=== PATIENT | female | born 1970 | race Caucasian/White ===

== ENCOUNTER 2021-03-06 15:13 | Outpatient (REF) | payer OTHER, SELFPAY ==
--- NOTE | ~2021-03-06 | MM_ITS ---
EXAMINATION: MM SCREENING DIGITAL BREAST TOMOSYNTHESIS, BILATERAL CLINICAL INFORMATION: Screening. Asymptomatic. The lifetime risk of breast cancer based on the Tyrer-Cuzick Model is 6%. COMPARISON: Mammography: 10/12/2019, 04/16/2018, 03/01/2013 TECHNIQUE: Digital breast tomosynthesis is performed in both the craniocaudal and mediolateral oblique views along with computer-aided detection (CAD). Synthesized 2D images are generated from the tomosynthesis. FINDINGS: There are scattered areas of fibroglandular density (ACR BI-RADS breast composition Category b). There are no significant masses, abnormal calcifications, or other abnormalities. Parenchymal pattern is similar to prior studies. No significant changes. MM/MM tomosynthesis screening BI IMPRESSION: No mammographic evidence of malignancy. ASSESSMENT: BI-RADS 1: Negative RECOMMENDATION: Routine annual mammography screening. This patient's information was entered into a reminder system with a target due date for their next mammogram.
== END 2021-03-06 15:14 | disposition home or self-care (01) ==
LOC: HO.MAMMO 15:13
PROVIDERS: PCP Internal Medicine; Visit Provider Internal Medicine
DX: Z12.31 Encounter for screening mammogram for malignant neoplasm of breast (principal)
CPT/HCPCS: 77063; 77067

== ENCOUNTER 2022-01-23 08:05 | Outpatient (REF) | payer OTHER, SELFPAY ==
[2022-01-23 08:46] LABS: MANUAL DIFF FLAG NO
[2022-01-23 09:34] LABS: Basophils Absolute Auto 0.1 X10*3/uL (0.0-0.2); Basophils Percent Auto 0.9 % (0-2); Eosinophils Absolute Auto 0.2 X10*3/uL (0.0-0.4); Eosinophils Percent Auto 3.4 % (0-4); Hemoglobin 13.8 g/dl (12.0-16.0); Imm Gran Abs Auto 0.02 X10*3/uL (0.00-0.03); Imm Gran Pct Auto 0.4 % (0.0-0.4); Immature Retic Fraction 10.1 % (3.0-15.9); Lymphocytes Absolute Auto 1.4 X10*3/uL (1.2-4.9); Lymphocytes Percent Auto 24.4 % (20-40); Mean Corpuscular HGB Conc 32.1 g/dl (31.0-35.0); Mean Corpuscular Hemoglobin 29.9 pg (27.0-33.0); Mean Corpuscular Volume 93.1 fL (80.0-98.0); Mean Platelet Volume 10.1 fL (9.4-12.3); Monocytes Absolute Auto 0.3 X10*3/uL (0.1-1.2); Monocytes Percent Auto 6.1 % (2-11); Neutrophils Absolute Auto 3.6 x10*3/uL (2.0-8.3); Neutrophils Percent Auto 64.8 % (45-73); Platelet Count 343 X10*3/uL (160-400); Red Blood Count 4.62 X10*6/uL (4.20-5.50); Red Cell Distribution Width 13.4 % (11.0-16.0); Retic HGB Equivalent 35.5 pg (30.0-35.0); Reticulocyte Percent 1.7 % (0.5-1.8); White Blood Count 5.6 X10*3/uL (4.8-10.8)
[2022-01-23 09:58] LABS: Alanine Aminotransferase 18 U/L (0-31); Albumin Level 4.8 g/dL (3.5-5.0); Alkaline Phosphatase 92 U/L (39-117); Anion Gap 14 (12-20); Aspartate Amino Transferase 17 U/L (5-31); Blood Urea Nitrogen 17 mg/dL (9-16); Calcium 9.6 mg/dL (8.4-10.2); Carbon Dioxide 28 mmol/L (22-29); Chloride 103 mmol/L (96-108); Cholesterol 245 mg/dL; Estimated Glomerular Filt Rate > 60; Glucose Random 131 mg/dL (60-115); HDL Cholesterol 56 mg/dL; LDL Cholesterol Calculated 164 mg/dl; Potassium 4.5 mmol/L (3.3-5.1); Sodium 140 mmol/L (135-145); Total Protein 7.9 g/dL (6.5-8.0); Triglycerides 129 mg/dL
[2022-01-23 10:11] LABS: Free T4 (Free Thyroxine) 1.16 ng/dL (0.71-1.85); Thyroid Stimulating Hormone 13.95 uIU/mL (0.32-4.0); Vitamin D 25-OH Total 35.5 ng/mL (>30)
== END 2022-01-23 08:06 | disposition home or self-care (01) ==
LOC: HO.LAB 08:05
PROVIDERS: PCP Internal Medicine; Visit Provider Internal Medicine
DX: R73.01 Impaired fasting glucose (principal); E03.9 Hypothyroidism, unspecified; E78.00 Pure hypercholesterolemia, unspecified
CPT/HCPCS: 36415; 80053; 80061; 82306; 84439; 84443; 85025; 85045

== ENCOUNTER 2022-03-13 12:11 | Outpatient (REF) | payer OTHER, SELFPAY ==
--- NOTE | ~2022-03-13 | MM_ITS ---
EXAMINATION: MM SCREENING DIGITAL BREAST TOMOSYNTHESIS, BILATERAL CLINICAL INFORMATION: Screening. Asymptomatic. The lifetime risk of breast cancer based on the Tyrer-Cuzick Model is 7%. COMPARISON: Mammography: 03/06/2021, 10/12/2019, 04/06/2018, 03/01/2013 TECHNIQUE: Digital breast tomosynthesis is performed in both the craniocaudal and mediolateral oblique views along with computer-aided detection (CAD). Synthesized 2D images are generated from the tomosynthesis. FINDINGS: There are scattered areas of fibroglandular density (ACR BI-RADS breast composition Category b). Parenchymal pattern is similar to prior studies. No developing density or interval mass or architectural abnormality. There is asymmetry of the breasts similar to prior study, right slightly larger. The axilla and skin contours are unremarkable. There are no significant changes prior exams. MM/MM tomosynthesis screening BI IMPRESSION: No mammographic evidence of malignancy. ASSESSMENT: BI-RADS 2: Benign RECOMMENDATION: Routine annual mammography screening. This patient's information was entered into a reminder system with a target due date for their next mammogram.
== END 2022-03-13 12:12 | disposition home or self-care (01) ==
LOC: HO.MAMMO 12:11
PROVIDERS: Visit Provider Internal Medicine
DX: Z12.31 Encounter for screening mammogram for malignant neoplasm of breast (principal)
CPT/HCPCS: 77063; 77067

== ENCOUNTER 2022-05-07 08:09 | Outpatient (REF) | payer OTHER, SELFPAY ==
[2022-05-07 08:59] LABS: Alanine Aminotransferase 18 U/L (0-31); Albumin Level 4.4 g/dL (3.5-5.0); Alkaline Phosphatase 86 U/L (39-117); Anion Gap 13 (12-20); Aspartate Amino Transferase 14 U/L (5-31); Bilirubin Total 0.6 mg/dL (0.0-1.0); Blood Urea Nitrogen 21 mg/dL (9-16); Calcium 9.4 mg/dL (8.4-10.2); Carbon Dioxide 26 mmol/L (22-29); Chloride 107 mmol/L (96-108); Cholesterol 180 mg/dL; Estimated Glomerular Filt Rate > 60; Glucose Random 130 mg/dL (60-115); HDL Cholesterol 50 mg/dL; LDL Cholesterol Calculated 117 mg/dl; Sodium 141 mmol/L (135-145); Total Protein 7.2 g/dL (6.5-8.0); Triglycerides 67 mg/dL
[2022-05-07 09:15] LABS: Free T4 (Free Thyroxine) 1.48 ng/dL (0.71-1.85); Thyroid Stimulating Hormone 0.62 uIU/mL (0.32-4.0)
== END 2022-05-07 08:10 | disposition home or self-care (01) ==
LOC: HO.LAB 08:09
PROVIDERS: PCP Internal Medicine; Visit Provider Internal Medicine
DX: E03.9 Hypothyroidism, unspecified (principal); E78.00 Pure hypercholesterolemia, unspecified
CPT/HCPCS: 36415; 80053; 80061; 84439; 84443

== ENCOUNTER 2022-08-20 08:16 | Outpatient (REF) | payer OTHER, SELFPAY ==
[2022-08-20 09:35] LABS: Alanine Aminotransferase 27 U/L (0-31); Albumin Level 4.6 g/dL (3.5-5.0); Alkaline Phosphatase 95 U/L (39-117); Anion Gap 16 (12-20); Aspartate Amino Transferase 19 U/L (5-31); Bilirubin Total 1.1 mg/dL (0.0-1.0); Blood Urea Nitrogen 13 mg/dL (9-16); Calcium 9.8 mg/dL (8.4-10.2); Carbon Dioxide 26 mmol/L (22-29); Chloride 103 mmol/L (96-108); Cholesterol 225 mg/dL; Estimated Glomerular Filt Rate > 60; Glucose Random 115 mg/dL (60-115); HDL Cholesterol 52 mg/dL; LDL Cholesterol Calculated 143 mg/dl; Potassium 4.6 mmol/L (3.3-5.1); Sodium 140 mmol/L (135-145); Total Protein 7.6 g/dL (6.5-8.0); Triglycerides 153 mg/dL
[2022-08-20 10:02] LABS: Free T4 (Free Thyroxine) 1.65 ng/dL (0.71-1.85); Thyroid Stimulating Hormone 0.09 uIU/mL (0.32-4.0)
== END 2022-08-20 08:17 | disposition home or self-care (01) ==
LOC: HO.LAB 08:16
PROVIDERS: PCP Internal Medicine; Visit Provider Internal Medicine
DX: E78.00 Pure hypercholesterolemia, unspecified (principal)
CPT/HCPCS: 36415; 80053; 80061; 84439; 84443

== ENCOUNTER 2022-12-15 08:33 | Outpatient (REF) | payer OTHER, SELFPAY ==
[2022-12-15 09:15] LABS: Estimated Average Glucose 117 mg/dL; Hemoglobin A1c % 5.7 %
[2022-12-15 09:18] LABS: Basophils Absolute Auto 0.1 X10*3/uL (0.0-0.2); Basophils Percent Auto 1.1 % (0-2); Eosinophils Absolute Auto 0.2 X10*3/uL (0.0-0.4); Eosinophils Percent Auto 2.7 % (0-4); Hematocrit 44.7 % (37.0-47.0); Hemoglobin 14.6 g/dl (12.0-16.0); Imm Gran Abs Auto 0.03 X10*3/uL (0.00-0.03); Imm Gran Pct Auto 0.5 % (0.0-0.4); Lymphocytes Absolute Auto 1.5 X10*3/uL (1.2-4.9); Lymphocytes Percent Auto 26.2 % (20-40); MANUAL DIFF FLAG SCAN; Mean Corpuscular HGB Conc 32.7 g/dl (31.0-35.0); Mean Corpuscular Hemoglobin 30.2 pg (27.0-33.0); Mean Corpuscular Volume 92.4 fL (80.0-98.0); Monocytes Absolute Auto 0.4 X10*3/uL (0.1-1.2); Monocytes Percent Auto 6.4 % (2-11); Neutrophils Absolute Auto 3.6 x10*3/uL (2.0-8.3); Neutrophils Percent Auto 63.1 % (45-73); PLT CLUMP 1; Red Blood Count 4.84 X10*6/uL (4.20-5.50); Red Cell Distribution Width 13.3 % (11.0-16.0); SCAN SMEAR FLAG 1
[2022-12-15 09:39] LABS: Alanine Aminotransferase 17 U/L (0-31); Albumin Level 4.7 g/dL (3.5-5.0); Alkaline Phosphatase 101 U/L (39-117); Anion Gap 15 (12-20); Aspartate Amino Transferase 15 U/L (5-31); Bilirubin Total 0.8 mg/dL (0.0-1.0); Blood Urea Nitrogen 24 mg/dL (9-16); Calcium 9.5 mg/dL (8.4-10.2); Carbon Dioxide 24 mmol/L (22-29); Chloride 105 mmol/L (96-108); Cholesterol 239 mg/dL; Estimated Glomerular Filt Rate > 60; Glucose Random 135 mg/dL (60-115); HDL Cholesterol 53 mg/dL; LDL Cholesterol Calculated 162 mg/dl; Potassium 4.2 mmol/L (3.3-5.1); Sodium 140 mmol/L (135-145); Total Protein 7.5 g/dL (6.5-8.0); Triglycerides 124 mg/dL
[2022-12-15 09:41] LABS: Mean Platelet Volume 10.8 fL (9.4-12.3); Platelet Count 293 X10*3/uL (160-400); White Blood Count 5.7 X10*3/uL (4.8-10.8)
[2022-12-15 09:42] LABS: SLIDE REVIEW VERIFIED
[2022-12-15 09:54] LABS: Thyroid Stimulating Hormone 8.56 uIU/mL (0.32-4.0)
[2022-12-15 10:01] LABS: Folate 11.6 ng/mL (> or = 4.0); Vitamin B12 613 pg/mL (200-900)
[2022-12-15 10:22] LABS: Creatinine Urine 147.32 mg/dL; Microalbum/Creatinine Ratio Ur 16.9 ug/mg cr
== END 2022-12-15 08:34 | disposition home or self-care (01) ==
LOC: HO.LAB 08:33
PROVIDERS: PCP Internal Medicine; Visit Provider Internal Medicine
DX: E11.65 Type 2 diabetes mellitus with hyperglycemia (principal); E78.00 Pure hypercholesterolemia, unspecified
CPT/HCPCS: 36415; 80053; 80061; 82043; 82607; 82746; 83036; 84439; 84443; 85025

== ENCOUNTER 2023-02-03 13:10 | Outpatient (REF) | payer OTHER, SELFPAY ==
[2023-02-07 02:59] LABS: HPV mRNA E6/E7 rflx Not Detected (Not Detected)
== END 2023-02-03 13:11 | disposition home or self-care (01) ==
LOC: HO.LNP 13:10
PROVIDERS: PCP Internal Medicine; Visit Provider Advanced Practice Midwife
DX: Z01.419 Encounter for gynecological examination (general) (routine) without abnormal findings (principal)
CPT/HCPCS: 87624; 88142

== ENCOUNTER 2023-03-20 08:14 | Outpatient (REF) | payer OTHER, SELFPAY ==
[2023-03-20 09:13] LABS: Estimated Average Glucose 120 mg/dL; Hemoglobin A1C 148.7788 umol/L; Hemoglobin A1c % 5.8 %
[2023-03-20 09:26] LABS: Alanine Aminotransferase 36 U/L (0-31); Albumin Level 4.5 g/dL (3.5-5.0); Alkaline Phosphatase 116 U/L (39-117); Anion Gap 13 (12-20); Aspartate Amino Transferase 26 U/L (5-31); Bilirubin Total 1.5 mg/dL (0.0-1.0); Blood Urea Nitrogen 15 mg/dL (9-16); Calcium 9.4 mg/dL (8.4-10.2); Carbon Dioxide 27 mmol/L (22-29); Chloride 105 mmol/L (96-108); Cholesterol 162 mg/dL; Estimated Glomerular Filt Rate > 60; Glucose Random 143 mg/dL (60-115); HDL Cholesterol 45 mg/dL; LDL Cholesterol Calculated 100 mg/dl; Potassium 4.7 mmol/L (3.3-5.1); Sodium 140 mmol/L (135-145); Triglycerides 87 mg/dL
== END 2023-03-20 08:15 | disposition home or self-care (01) ==
LOC: HO.LAB 08:14
PROVIDERS: PCP Internal Medicine; Visit Provider Internal Medicine
DX: E11.65 Type 2 diabetes mellitus with hyperglycemia (principal); E78.00 Pure hypercholesterolemia, unspecified
CPT/HCPCS: 36415; 80053; 80061; 83036

== ENCOUNTER 2023-04-17 13:04 | Outpatient (REF) | payer OTHER, SELFPAY ==
--- NOTE | ~2023-04-17 | MM_ITS ---
EXAMINATION: MM SCREENING DIGITAL BREAST TOMOSYNTHESIS, BILATERAL CLINICAL INFORMATION: Screening. Asymptomatic. The lifetime risk of breast cancer based on the Tyrer-Cuzick Model is 6%. COMPARISON: Mammography: 03/13/2022, 03/06/2021, 10/13/2019 TECHNIQUE: Digital breast tomosynthesis is performed in both the craniocaudal and mediolateral oblique views along with computer-aided detection (CAD). Synthesized 2D images are generated from the tomosynthesis. FINDINGS: There are scattered areas of fibroglandular density (ACR BI-RADS breast composition Category b). There are no significant masses, abnormal calcifications, or other abnormalities. No architectural abnormality or developing density or significant change from prior studies. Parenchymal pattern is similar to prior studies. The axilla and skin contours are unremarkable. MM/MM tomosynthesis screening BI IMPRESSION: No mammographic evidence of malignancy. ASSESSMENT: BI-RADS 1: Negative RECOMMENDATION: Routine annual mammography screening. This patient's information was entered into a reminder system with a target due date for their next mammogram.
== END 2023-04-17 13:05 | disposition home or self-care (01) ==
LOC: HO.MAMMO 13:04
PROVIDERS: PCP Internal Medicine; Visit Provider Internal Medicine
DX: Z12.31 Encounter for screening mammogram for malignant neoplasm of breast (principal)
CPT/HCPCS: 77063; 77067

== ENCOUNTER 2023-06-26 08:37 | Outpatient (REF) | payer OTHER, SELFPAY ==
[2023-06-26 09:06] LABS: Estimated Average Glucose 111 mg/dL; Hemoglobin A1c % 5.5 %
[2023-06-26 09:31] LABS: Alanine Aminotransferase 18 U/L (0-31); Albumin Level 4.5 g/dL (3.5-5.0); Alkaline Phosphatase 111 U/L (39-117); Anion Gap 18 (12-20); Aspartate Amino Transferase 15 U/L (5-31); Bilirubin Total 0.9 mg/dL (0.0-1.0); Blood Urea Nitrogen 14 mg/dL (9-16); Calcium 9.6 mg/dL (8.4-10.2); Carbon Dioxide 22 mmol/L (22-29); Chloride 107 mmol/L (96-108); Cholesterol 167 mg/dL; Estimated Glomerular Filt Rate > 60; Glucose Random 126 mg/dL (60-115); HDL Cholesterol 52 mg/dL; LDL Cholesterol Calculated 99 mg/dl; Potassium 4.1 mmol/L (3.3-5.1); Sodium 143 mmol/L (135-145); Total Protein 7.5 g/dL (6.5-8.0); Triglycerides 82 mg/dL
[2023-06-26 09:58] LABS: Free T4 (Free Thyroxine) 0.71 ng/dL (0.71-1.85); Thyroid Stimulating Hormone 20.31 uIU/mL (0.32-4.0)
== END 2023-06-26 08:38 | disposition home or self-care (01) ==
LOC: HO.LAB 08:37
PROVIDERS: PCP Internal Medicine; Visit Provider Internal Medicine
DX: E03.9 Hypothyroidism, unspecified (principal); E11.65 Type 2 diabetes mellitus with hyperglycemia; E78.00 Pure hypercholesterolemia, unspecified
CPT/HCPCS: 36415; 80053; 80061; 83036; 84439; 84443

== ENCOUNTER 2023-11-17 13:28 | Outpatient (AMB) | payer OTHER, SELFPAY ==
--- NOTE | 2023-11-17 13:30 | A.OFFPC_ITS ---
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: No Accompanied by: Self / Same As Patient Allergies Penicillins [PENICILLINS] Allergy (Unknown, Verified 11/17/23 13:31) RASH Medication List - Last Reconciled 11/17/23 by Bruce Rawls MD atorvastatin 80 mg PO DAILY 90 days cholecalciferol (vitamin D3) 25 mcg PO DAILY levothyroxine 137 mcg PO DAILY 90 days multivitamin 1 tab PO DAILY omega-3 fatty acids (Fish Oil Concentrate) 1,000 mg PO DAILY Tobacco use date assessed: 12/19/22 Dental Screening Dental Screen Date: 11/17/23 Did you have a dental visit in the last 12 months?: Yes Did you have a dental problem in the last 6 months where you did not have access to dental care?: No Was dental information given to patient?: Patient has dentist HPI PE HPI Details 53-year-old overweight female with contr olled diabetes mellitus hypercholesterolemia hypothyroidism last seen in February 2023. Patient is here for follow-up. Patient's colonoscopy is due in 2023 mammogram is up-to-date and Pap smear is up-to-date patient was advised to get blood work done after the last blood work because of the elevated TSH but this was not done. Patient is here for physical [facility] Medical History Concussion Hearing loss Hypercholesterolemia Hypothyroid Learning disability Overweight (BMI 25.0-29.9) Pelvic fracture Stress incontinence Vitamin D deficiency Surgical History History of colonoscopy History of ear surgery History of nasal surgery History of tubal ligation Family History (Updated 11/17/23 @ 14:16 by Bruce Rawls MD) Father Colon cancer Myocardial infarction Mother Diabetes Maternal Grandfather Myocardial infarction Paternal Grandmother Mouth cancer Gastric cancer Paternal Uncle Colon cancer Spinal cord cancer Sister Uterine cancer Social History (Updated 11/17/23 @ 14:17 by Bruce Rawls MD) Household Members Other:: . 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 Luis Gray, Lisa Valdes, Niraj Martin and colleagues, with an educational smita from [employer]. Review of Systems Const Denies poor appetite and Denies weakness Eyes Denies no additional complaints ENT Reports Normal hearing present, Denies dizziness, Denies nasal congestion, D enies tinnitus and Denies sore throat Card Denies chest pain, Denies syncope, Denies rapid heart rate and Denies dyspnea Resp Denies cough and Denies dyspnea GI Denies change in stool character, Reports constipation, Denies diarrhea, Denies nausea and Denies vomiting Denies urinary frequency, Denies difficulty voiding and Denies dysuria Neuro Reports Normal hearing present, Denies confusion, Denies dizziness, Denies syncope and Denies weakness Psych Denies confusion Physical exam (Primary Care) Vital Signs: Last Vital Signs Pulse 70 11/17/23 13:31 BP 138/80 11/17/23 14:13 Pulse Ox 97 11/17/23 13:31 Oxygen Delivery Method Room Air 11/17/23 13:31 BMI result Body Mass Index 26.8 Tobacco/Smoking Status: Tobacco use Status Tobacco use date assessed 12/19/22 11/17/23 13:31 Patient Tobacco Use Status Never used Tobacco 11/17/23 14:17 e-Cigarette/Vaping Use Never Used 11/17/23 14:17 Thrive Assessment: Date of Thrive Assessment Date Thrive assessed 12/19/22 11/17/23 13:31 Const General: No confusion Orientation/consciousness: No confusion HENMT Head: Yes normocephalic Ears: external ears normal and TM's normal bilaterally Face and sinus: Yes normal facial exam Mouth: moist mucous membranes Throat: Yes tonsils normal Eyes Conjunctivae: conjunctivae normal Pupils: Equal, round and reactive pupils present and Pupil accommodation reflex normal Direct Ophthalmoscopy: normal light reflex Neck Neck: No lymphadenopathy Thyroid: Thyroid normal Chest Chest palpation & inspection: normal inspection of the chest Resp Effort & Inspection: normal respiratory effort and no audible wheezes Auscultation: clear to auscultation bilaterally, no crackles, no wheezes and lung sounds not diminished Cardio Rate: regular rate Rhythm: regular rhythm Peripheral pulses: radial pulses present and dorsalis pedis present GI Palpation (GI): no masses Auscultation: normal bowel sounds and normoactive bowel sounds Rectal Exam - Female: deferred Skin General skin exam: no rashes or lesions noted Rashes: no rashes Neuro General: No confusion Cranial nerves: Yes Equal, round and reactive pupils present and Yes Normal hear ing present Cognition (Neuro): normal cognition Gait exam (Neuro): Normal gait present Motor exam (neuro): 5/5 motor strength present throughout Deep tendon reflexes (DTR's): Right brachioradialis reflex intensity grade: 2+, Left brachioradialis reflex intensity grade: 2+, Right patellar reflex intensity grade: 2+ and Left patellar reflex intensity grade: 2+ Extrem General: No edema Office Procedures Flu Questionnaire Does the patient have a severe egg allergy?: No Does the patient have severe life threatening allergies?: No Does the patient have a fever or illness today?: No Has the patient ever had Guillain-Marion Syndrome?: No Has the patient ever had any past reaction to a flu shot?: No Results AMB Hemoglobin A1c AMB Hemoglobin A1c 6.2 % Last Edit by Moira Sexton on 11/17/23 14:06 Immunizations flu vacc [id number] 6mos up(PF) 60 mcg(15 mcgx4)/0.5 mL IM syringe Performing Provider: Bruce Rawls MD Performing Location: [facility] Administered by: KATHY Graves on 11/17/23 14:31 Dose Route Admin Location Dispensed Lot Number Expiration Date NDC Burn Out Tender Lace 0.5 mL IM Left Deltoid 0.5 mL [id number] 05/29/24 [id number] [employer] VIS Given Date VIS Provided VIS Publication Date 11/17/23 Single Vaccine 21 Eligibility Eligibility Date Funding Source Not VFC Eligible 11/17/23 Private Results Reviewed Results Reviewed: Laboratory Last Values Hgb A1c (Clinic) 6.2 % (4.0-6.0) H 11/17/23 13:32 Assessment and Plan Assessment & Plan (1) Annual physical exam: Code(s): Z00.00 - Encounter for general adult medical examination without abnormal findings (2) Type 2 diabetes mellitus with hyperglycemia: Code(s): E11.65 - Type 2 diabetes mellitus with hyperglycemia Plan: Decrease the amount of carbohydrate intake, pasta, bread, rice and potatoes are all sugar and that is aside from all the sweet stuff, remember that fruits are good but they are Sweet also. Hemoglobin A1c goal of less than 6.5. Patient on diet control. reminded about ophthalmology (3) Hypercholesterolemia: Code(s): E78.00 - Pure hypercholesterolemia, unspecified Plan: Avoid fried foods, chicken skin, eggs, butter margarine, pastries and meat. Be it pork or beef they have a lot of cholesterol LDL goal of less than 100 and triglyceride of less than 150 (4) Hypothyroid: Code(s): E03.9 - Hypothyroidism, unspecified Qualifiers: Hypothyroidism type: acquired Qualified Code(s): E03.9 - Hypothyroidism, unspecified Plan: Continue with thyroid medication but will need blood work. Orders: Orders Complete Blood Count Auto Diff 1 Month E11.65 - Type 2 diabetes mellitus with hyperglycemia Comprehensive Met. Panel 1 Month E11.65 - Type 2 diabetes mellitus with hyperglycemia Vitamin D 25-OH Total 1 Month E11.65 - Type 2 diabetes mellitus with hyperglycemia Creatinine Urine 1 Month E11.65 - Type 2 diabetes mellitus with hyperglycemia Microalbumin, Random (w Creat) 1 Month E11.65 - Type 2 diabetes mellitus with hyperglycemia AMB Hemoglobin A1c Today Z13.9 - Encounter for screening, unspecified Free T4 (Free Thyroxine) 1 Month E11.65 - Type 2 diabetes mellitus with hyperglycemia Thyroid Stimulating Hormone 1 Month E11.65 - Type 2 diabetes mellitus with hyperglycemia Vitamin B12 and Folate 1 Month E11.65 - Type 2 diabetes mellitus with hyperglycemia Lipid Panel 1 Month E11.65 - Type 2 diabetes mellitus with hyperglycemia, E78.00 - Pure hypercholesterolemia, unspecified Influenza [id number] Immunization Today Z23 - Encounter for immunization Medications: Refilled levothyroxine 137 mcg PO DAILY 90 tabs 4RF 90 days E03.9 - Hypothyroidism, unspecified Coding Level of Care Code Est Pt Prev Care 40-64y(67292) Diagnoses Annual physical exam Z00.00 Type 2 diabetes mellitus with hyperglycemia E11.65 Hypercholesterolemia E78.00 Acquired hypothyroidism E03.9 Hypothyroidism type: acquired
[2023-11-17 13:31] VITALS: BP 154/96; PULSE 70; O2SAT 97; BMI 26.8
[2023-11-17 14:13] VITALS: BP 138/80
== END 2023-11-17 14:36 | disposition home or self-care (01) ==
PROVIDERS: Visit Provider Internal Medicine
DX: Z23 Encounter for immunization (principal); Z00.00 Encounter for general adult medical examination without abnormal findings; E11.65 Type 2 diabetes mellitus with hyperglycemia; E78.00 Pure hypercholesterolemia, unspecified; E03.9 Hypothyroidism, unspecified
CPT/HCPCS: 83036; 90471; 90686; 99396

== ENCOUNTER 2024-02-09 14:22 | Outpatient (REF) | payer OTHER, SELFPAY | END 2024-02-09 14:23 | disposition home or self-care (01) | LOC: HO.LAB 14:22 | PROVIDERS: PCP Internal Medicine; Visit Provider Advanced Practice Midwife | DX: Z01.419 Encounter for gynecological examination (general) (routine) without abnormal findings (principal); L02.92 Furuncle, unspecified | CPT/HCPCS: 87070; 87205; 99396 ==

== ENCOUNTER 2024-02-09 14:22 | Outpatient (AMB) | payer OTHER, SELFPAY ==
--- NOTE | 2024-02-09 14:25 | MHC.OFFVIS ---
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 She is doing well with no concerns. Attempting to eat a healthy diet with calcium and vitamin D and stays active with exercise. Currently sexually not active in many years. Denies any vaginal dryness or irritation. STI testing offered; she declines. Last pap smear; 2022. Last mammogram; 2022. Colonoscopy is UTD. Denies any family history of breast or colon cancer. FH ovarian cancer-sister. [facility] Medical History Learning disability Concussion Hearing loss Pelvic fracture Hypercholesterolemia Stress incontinence Overweight (BMI 25.0-29.9) Vitamin D deficiency Hypothyroid Surgical History History of colonoscopy History of ear surgery History of nasal surgery History of tubal ligation Family History Father Colon cancer Myocardial infarction Mother Diabetes Maternal Grandfather Myocardial infarction Paternal Grandmother Mouth cancer Gastric cancer Paternal Uncle Colon cancer Spinal cord cancer Sister Uterine cancer Social History Household Members Other:: . 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 Sexual orientation: Straight/Heterosexual Gender identity: Female Cognitive needs: No Hearing needs: No Vision needs: Yes Female Reproductive History Menstrual control method: permanent sterilization Permanent Sterilization: BTL Total pregnancies: 2 Full term: 2 Number of Living Children: 2 Date of last pap smear: 02/03/23 (neg pap and hpv) Date of Mammogram: 04/17/23 (Birad 1) Review of Systems Const All systems reviewed & are unremarkable except as noted in HPI and below Reports as per HPI Eyes Reports no additional complaints ENT Reports no additional complaints Card Reports no additional complaints Resp Reports no additional complaints GI Reports as per HPI and Reports no additional complaints Reports as per HPI Musc Reports no additional complaints Skin/Breast Reports as per HPI Neuro Reports no additional complaints Psych Reports no additional complaints Endo Reports no additional complaints Michael/Lymph Reports no additional complaints Aller/Immun Reports no additional complaints Physical Exam Vital Signs: Last Vital Signs BP 126/86 02/09/24 14:26 BMI result Body Mass Index 27.1 Const General: cooperative, healthy appearing, no acute distress, well developed and alert Orientation/consciousness: patient oriented x3 HEENT Head: Yes normal to inspection Eyes General: appearance normal, both eyes and all related structures Neck Neck: Yes normal visual inspection Thyroid: Thyroid normal Chest Chest palpation & inspection: normal inspection of the chest and other (no puckering, dimpling, peau de orange, retraction, discharge, masses) Breast/axilla inspection: normal inspection of the breasts Breast/axilla palpation: normal palpation of the breasts Resp Effort & Inspection: normal respiratory effort GI Inspection: Yes normal to inspection Palpation (GI): Soft to palpation Rectal Exam - Female: deferred Other: Right groin furuncle small, open not actively draining not able to milk, localized in the crease, a 2nd pustule noted on the right mons General: Yes bladder normal to palpation External Female Exam: normal external appearance and normal appearance of the urethra Speculum Exam - Vagina: normal appearance of the vagina, normal palpation and normal vaginal discharge Speculum Exam - Cervix: normal appearance of the cervix and normal palpation Bimanual exam- vagina & uterus: normal bimanual exam, normal palpation, uterine size normal, bladder normal to palpation, normal palpation and non-tender Bimanual Exam- Adnexa, other: no masses Skin General skin exam: no rashes or lesions noted Rashes: no rashes Neuro General: patient oriented x3 Cognition (Neuro): normal cognition Extrem General: Yes normal to inspection Psych Attitude: cooperative Thought process: Normal thought process present Assessment & Plan Assessment & Plan (1) Encounter for well woman exam with routine gynecological exam: Code(s): Z01.419 - Encounter for gynecological examination (general) (routine) without abnormal findings (2) Furuncle: Code(s): L02.92 - Furuncle, unspecified Plan Discussed: Current recommendations for pap smears per ASCCP guidelines. Breast awareness, periodic self breast exams and yearly mammogram. Maintain a healthy lifestyle, well balanced diet including Calcium 1,200 mg and Vitamin D 600 IU daily, and routine exercise. Culture of groin crease area, including for MRSA. Advised to seek care this area becomes increased in pain, swelling, redness. Advised to wear loose clothing, boxer shorts. Contact the office with any postmenopausal bleeding. Patient verbalizes understanding and agrees to the plan of care. She was given opportunity to ask questions and all questions were answered to the best of my ability. RTO in 1 year for annual laboratory phlebotomist exam. This note is constructed using voice recognition software. While every effort has been made to ensure accuracy, blood and plasma laboratory assistant errors may have been included. Orders: Orders Routine Culture w Gram Stain Today L02.92 - Furuncle, unspecified MRSA Culture Today L02.92 - Furuncle, unspecified Coding Level of Care Code Est Pt Prev Care 40-64y(63266) Diagnoses Encounter for well woman exam with routine gynecological exam Z01.419 Furuncle L02.92
[2024-02-09 14:26] VITALS: BP 126/86; BMI 27.1
== END 2024-02-09 15:00 | disposition home or self-care (01) ==
LOC: HO.HWS 14:23
PROVIDERS: PCP Internal Medicine; Visit Provider Advanced Practice Midwife
DX: Z01.419 Encounter for gynecological examination (general) (routine) without abnormal findings (principal); L02.92 Furuncle, unspecified
CPT/HCPCS: 99396

== ENCOUNTER 2024-02-18 09:25 | Outpatient (REF) | payer OTHER, SELFPAY ==
[2024-02-18 09:42] LABS: MANUAL DIFF FLAG NO
[2024-02-18 10:19] LABS: Basophils Absolute Auto 0.1 X10*3/uL (0.0-0.2); Eosinophils Absolute Auto 0.1 X10*3/uL (0.0-0.4); Eosinophils Percent Auto 2.6 % (0-4); Hematocrit 42.2 % (37.0-47.0); Imm Gran Abs Auto 0.01 X10*3/uL (0.00-0.03); Imm Gran Pct Auto 0.2 % (0.0-0.4); Lymphocytes Absolute Auto 1.2 X10*3/uL (1.2-4.9); Lymphocytes Percent Auto 24.6 % (20-40); Mean Corpuscular HGB Conc 33.2 g/dl (31.0-35.0); Mean Corpuscular Hemoglobin 30.4 pg (27.0-33.0); Mean Corpuscular Volume 91.5 fL (80.0-98.0); Monocytes Absolute Auto 0.3 X10*3/uL (0.1-1.2); Monocytes Percent Auto 6.6 % (2-11); Neutrophils Absolute Auto 3.2 x10*3/uL (2.0-8.3); Platelet Count 364 X10*3/uL (160-400); Red Blood Count 4.61 X10*6/uL (4.20-5.50); Red Cell Distribution Width 13.5 % (11.0-16.0)
[2024-02-18 11:05] LABS: Alanine Aminotransferase 14 U/L (0-31); Albumin Level 4.5 g/dL (3.5-5.0); Alkaline Phosphatase 97 U/L (39-117); Anion Gap 15 (12-20); Aspartate Amino Transferase 12 U/L (5-31); Bilirubin Total 0.4 mg/dL (0.0-1.0); Blood Urea Nitrogen 14 mg/dL (9-16); Calcium 9.2 mg/dL (8.4-10.2); Carbon Dioxide 26 mmol/L (22-29); Chloride 106 mmol/L (96-108); Cholesterol 240 mg/dL (<200); Estimated Glomerular Filt Rate > 60; Glucose Random 115 mg/dL (60-115); HDL Cholesterol 59 mg/dL (>40); LDL Cholesterol Calculated 168 mg/dL (<100); Potassium 4.2 mmol/L (3.3-5.1); Sodium 143 mmol/L (135-145); Total Protein 7.7 g/dL (6.5-8.0); Triglycerides 65 mg/dL (<150)
[2024-02-18 11:11] LABS: Free T4 (Free Thyroxine) 0.98 ng/dL (0.71-1.85); Thyroid Stimulating Hormone 15.62 uIU/mL (0.32-4.0); Vitamin D 25-OH Total 31.2 ng/mL (>30)
[2024-02-18 11:16] LABS: Folate 10.1 ng/mL (> or = 4.0); Vitamin B12 521 pg/mL (200-900)
[2024-02-18 11:51] LABS: Creatinine Urine 161.16 mg/dL; Microalbum/Creatinine Ratio Ur 13.6 ug/mg cr (<30)
== END 2024-02-18 09:26 | disposition home or self-care (01) ==
LOC: HO.LAB 09:25
PROVIDERS: PCP Internal Medicine; Visit Provider Internal Medicine
DX: E11.65 Type 2 diabetes mellitus with hyperglycemia (principal); E78.00 Pure hypercholesterolemia, unspecified
CPT/HCPCS: 36415; 80053; 80061; 82043; 82306; 82570; 82607; 82746; 84439; 84443; 85025

== ENCOUNTER 2024-02-24 12:20 | Outpatient (AMB) | payer OTHER, SELFPAY ==
--- NOTE | 2024-02-24 12:29 | A.OFFPC_ITS ---
Vital Signs 02/24/24 12:30 Height 5 ft Weight 136 lb 0.6 oz BMI 26.6 BP 138/90 H Blood Pressure Location Lt brachial Position Sitting Pulse 77 Pulse Source Pulse Oximeter Pulse Oximetry (%) 98 Oxygen Delivery Method Room Air Intake Visit Reasons: 3 month f/u Intake Note: Patient is here to follow up on 3 months Family Practice Physician Assistant Required: No Allergies Penicillins [PENICILLINS] Allergy (Unknown, Verified 02/24/24 12:30) RASH Medication List - Last Reconciled 02/24/24 by Bruce Rawls MD atorvastatin 80 mg PO DAILY 90 days cholecalciferol (vitamin D3) 25 mcg PO DAILY levothyroxine 150 mcg PO DAILY 90 days multivitamin 1 tab PO DAILY omega-3 fatty acids (Fish Oil Concentrate) 1,000 mg PO DAILY Tobacco use date assessed: 02/24/24 HPI 3 month f/u HPI Details 53-year-old overweight female with a his tory of controlled diabetes mellitus hypercholesterolemia hypothyroidism last seen in October 2023. Patient is due for colonoscopy, up-to-date with mammogram and Pap smear, HAS BEEN B[facility] WITH [facility] Medical History Learning disability Concussion Hearing loss Pelvic fracture Hypercholesterolemia Stress incontinence Overweight (BMI 25.0-29.9) Vitamin D deficiency Hypothyroid Surgical History History of colonoscopy History of ear surgery History of nasal surgery History of tubal ligation Family History Father Colon cancer Myocardial infarction Mother Diabetes Maternal Grandfather Myocardial infarction Paternal Grandmother Mouth cancer Gastric cancer Paternal Uncle Colon cancer Spinal cord cancer Sister Uterine cancer Social History Household Members Other:: . 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 How often do you have a drink containing alcohol?: Monthly or less 2. How many drinks containing alcohol do you have on a typical day when you are drinking?: 1 or 2 3. How often do you have six or more drinks on one occasion?: Never Total Score: 1 Score Reviewed/Action Taken: No ISAAC-7 AMB Questionnaire ISAAC-7 Date ISAAC - 7 assessed: 02/24/24 Source: Developed by Drs. Luis Gray, Lisa Valdes, Niraj Martin and colleagues, with an educational smita from [employer] Physical exam (Primary Care) Vital Signs: Last Vital Signs Pulse 77 02/24/24 12:30 BP 138/90 H 02/24/24 12:30 Pulse Ox 98 02/24/24 12:30 Oxygen Delivery Method Room Air 02/24/24 12:30 BMI result Body Mass Index 26.6 Tobacco/Smoking Status: Tobacco use Status Tobacco use date assessed 02/24/24 02/24/24 12:35 Patient Tobacco Use Status Never used Tobacco 02/24/24 12:35 e-Cigarette/Vaping Use Never Used 02/24/24 12:35 Thrive Assessment: Date of Thrive Assessment Date Thrive assessed 02/24/24 02/24/24 12:35 Const General: alert; No acute distress Eyes Conjunctivae: conjunctivae normal Resp Auscultation: clear to auscultation bilaterally Cardio Rate: regular rate Rhythm: regular rhythm GI Inspection: Yes normal to inspection Extrem General: Yes normal to inspection and No edema Results AMB Hemoglobin A1c AMB Hemoglobin A1c 6.0 % Last Edit by KATHY Graves on 02/24/24 12:41 Results Reviewed Results Reviewed: Laboratory Last Values Hgb A1c (Clinic) 6.0 % (4.0-6.0) 02/24/24 12:40 Assessment and Plan Assessment & Plan (1) Type 2 diabetes mellitus with hyperglycemia: Code(s): E11.65 - Type 2 diabetes mellitus with hyperglycemia Plan: Decrease the amount of carbohydrate intake, pasta, bread, rice and potatoes are all sugar and that is aside from all the sweet stuff, remember that fruits are good but they are Sweet also. Hemoglobin A1c goal of less than 6.5. Patient diet controlled (2) Hypercholesterolemia: Code(s): E78.00 - Pure hypercholesterolemia, unspecified Plan: Avoid fried foods, chicken skin, eggs, butter margarine, pastries and meat. Be it pork or beef they have a lot of cholesterol LDL goal of less than 100 and triglyceride of less than 150. Patient admits to not taking the atorvastatin. Refill done (3) Overweight (BMI 25.0-29.9): Code(s): E66.3 - Overweight Plan: Diet and exercise (4) Hypothyroid: Code(s): E03.9 - Hypothyroidism, unspecified Qualifiers: Hypothyroidism type: acquired Qualified Code(s): E03.9 - Hypothyroidism, unspecified Plan: Called because patient had blood work done showing elevated TSH. Patient was advised to increase the dose and retest TSH in 2 months (5) Colon cancer screening: Code(s): Z12.11 - Encounter for screening for malignant neoplasm of colon Plan: Patient is reminded about colonoscopy Orders: Orders AMB Hemoglobin A1c Today E11.65 - Type 2 diabetes mellitus with hyperglycemia Referrals Ophthalmology Referral E11.65 - Type 2 diabetes mellitus with hyperglycemia Coding Level of Care Code Est Pt Level 4 (54087) Diagnoses Type 2 diabetes mellitus with hyperglycemia E11.65 Hypercholesterolemia E78.00 Overweight (BMI 25.0-29.9) E66.3 Acquired hypothyroidism E03.9 Hypothyroidism type: acquired Colon cancer screening Z12.11
[2024-02-24 12:30] VITALS: BP 138/90; PULSE 77; O2SAT 98; BMI 26.6
== END 2024-02-24 12:57 | disposition home or self-care (01) ==
PROVIDERS: PCP Internal Medicine; Visit Provider Internal Medicine
DX: E11.65 Type 2 diabetes mellitus with hyperglycemia (principal); E78.00 Pure hypercholesterolemia, unspecified; E66.3 Overweight; E03.9 Hypothyroidism, unspecified; Z12.11 Encounter for screening for malignant neoplasm of colon
CPT/HCPCS: 83036; 99214

== ENCOUNTER 2024-06-17 07:28 | Outpatient (REF) | payer OTHER, SELFPAY ==
[2024-06-17 16:36] LABS: Creatinine Urine 209.18 mg/dL
[2024-06-17 16:53] LABS: Anion Gap 14 (12-20); Blood Urea Nitrogen 18 mg/dL (9-16); Carbon Dioxide 26 mmol/L (22-29); Chloride 107 mmol/L (96-108); Estimated Glomerular Filt Rate > 60; Glucose Random 147 mg/dL (60-115); Potassium 4.7 mmol/L (3.3-5.1); Sodium 142 mmol/L (135-145)
[2024-06-17 16:54] LABS: Alanine Aminotransferase 14 U/L (0-31); Albumin Level 4.7 g/dL (3.5-5.0); Aspartate Amino Transferase 12 U/L (5-31); Bilirubin Total 1.2 mg/dL (0.0-1.0); Calcium 9.9 mg/dL (8.4-10.2); Total Protein 7.7 g/dL (6.5-8.0); Triglycerides 96 mg/dL (<150)
[2024-06-17 16:55] LABS: Alkaline Phosphatase 109 U/L (39-117); Cholesterol 182 mg/dL (<200); Free T4 (Free Thyroxine) 1.49 ng/dL (0.71-1.85); HDL Cholesterol 52 mg/dL (>40); LDL Cholesterol Calculated 111 mg/dL (<100); Thyroid Stimulating Hormone 0.06 uIU/mL (0.32-4.0)
== END 2024-06-17 07:29 | disposition home or self-care (01) ==
LOC: HO.LAB 07:28
PROVIDERS: PCP Internal Medicine; Visit Provider Internal Medicine
DX: E11.65 Type 2 diabetes mellitus with hyperglycemia (principal); E78.00 Pure hypercholesterolemia, unspecified; E03.9 Hypothyroidism, unspecified
CPT/HCPCS: 36415; 80053; 80061; 82570; 84439; 84443

== ENCOUNTER 2024-06-23 14:31 | Outpatient (AMB) | payer OTHER, SELFPAY ==
[2024-06-23 14:34] VITALS: BP 116/70; PULSE 67; O2SAT 97; BMI 26.2
--- NOTE | 2024-06-23 14:34 | A.OFFPC_ITS ---
Vital Signs 06/23/24 14:34 Height 5 ft Weight 134 lb BMI 26.2 BP 116/70 Blood Pressure Location Lt brachial Position Sitting Pulse 67 Pulse Source Pulse Oximeter Pulse Oximetry (%) 97 Oxygen Delivery Method Room Air Intake Visit Reasons: DM , Cholesterol Belt Notcher: Not Required per policy Accompanied by: Self / Same As Patient Allergies Penicillins [PENICILLINS] Allergy (Unknown, Verified 02/24/24 12:30) RASH Medication List - Last Reconciled 06/23/24 by Bruce Rawls MD cholecalciferol (vitamin D3) 25 mcg PO DAILY levothyroxine take 150 mcg QD except for thursday orally; 90 days multivitamin 1 tab PO DAILY omega-3 fatty acids (Fish Oil Concentrate) 1,000 mg PO DAILY rosuvastatin 40 mg PO DAILY Tobacco use date assessed: 02/24/24 Dental Screening Dental Screen Date: 06/23/24 Did you have a dental visit in the last 12 months?: Yes Did you have a dental problem in the last 6 months where you did not have access to dental care?: No Was dental information given to patient?: Patient has dentist HPI DM , Cholesterol HPI Details 53-year-old female with controlled diabe marisol mellitus hypercholesterolemia hypothyroidism last seen in January 2024. Patient has been reminded about colonoscopy mammogram is due and Pap smear is up-to-date. [facility] Medical History Learning disability Concussion Hearing loss Pelvic fracture Hypercholesterolemia Stress incontinence Overweight (BMI 25.0-29.9) Vitamin D deficiency Hypothyroid Surgical History History of colonoscopy History of ear surgery History of nasal surgery History of tubal ligation Family History Father Colon cancer Myocardial infarction Mother Diabetes Maternal Grandfather Myocardial infarction Paternal Grandmother Mouth cancer Gastric cancer Paternal Uncle Colon cancer Spinal cord cancer Sister Uterine cancer Social History Household Members Other:: . 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 1. Little interest or pleasure in doing things: not at all 2. Feeling down, depressed, or hopeless: not at all 3. Trouble falling or staying asleep, or sleeping too much: not at all 4. Feeling tired or having little energy: not at all 5. Poor appetite or overeating: not at all 6. Feeling bad about yourself - or that you are a failure or have let yourself or your family down: not at all 7. Trouble concentrating on things, such as reading the newspaper or watching television: not at all 8. Moving or speaking so slowly that other people could have noticed. Or the opposite - being so fidgety or restless that you have been moving around a lot more than usual: not at all 9. Thoughts that you would be better off or of hurting yourself in some way: not at all Total score: 0 Depression Screening Interpretation: Negative Depression Screening Done: Yes 98467 - PHQ-9 Billing: Yes Source: Developed by Drs. Luis Gray, Niraj Delong and colleagues, with an educational smita from [employer]. Thrive Questionnaire Date Thrive assessed: 02/24/24 ISAAC-7 AMB Questionnaire ISAAC-7 Date ISAAC - 7 assessed: 02/24/24 Source: Developed by Drs. Luis Gray, Niraj Delong and colleagues, with an educational smita from [employer]. Physical exam (Primary Care) Vital Signs: Last Vital Signs Pulse 67 06/23/24 14:34 BP 116/70 06/23/24 14:34 Pulse Ox 97 06/23/24 14:34 Oxygen Delivery Method Room Air 06/23/24 14:34 BMI result Body Mass Index 26.2 Tobacco/Smoking Status: Tobacco use Status Tobacco use date assessed 02/24/24 06/23/24 14:35 Patient Tobacco Use Status Never used Tobacco 06/23/24 14:35 e-Cigarette/Vaping Use Never Used 06/23/24 14:35 PHQ-9: PHQ-9 Score PHQ-9: Total score 0 06/23/24 14:43 Depression Screening Interpretation: Negative Thrive Assessment: Date of Thrive Assessment Date Thrive assessed 02/24/24 06/23/24 14:35 Const General: alert; No acute distress Eyes Conjunctivae: conjunctivae normal Resp Auscultation: clear to auscultation bilaterally Cardio Rate: regular rate Rhythm: regular rhythm GI Inspection: Yes normal to inspection Extrem General: Yes normal to inspection and No edema Results AMB Hemoglobin A1c AMB Hemoglobin A1c 6.2 % Last Edit by KATHY Goss on 06/23/24 14:47 Results Reviewed Results Reviewed: Laboratory Last Values Hgb A1c (Clinic) 6.2 % (4.0-6.0) H 06/23/24 14:06 Assessment and Plan Assessment & Plan (1) Colon cancer screening: Code(s): Z12.11 - Encounter for screening for malignant neoplasm of colon Plan: Patient is reminded about colonoscopy (2) Type 2 diabetes mellitus with hyperglycemia: Code(s): E11.65 - Type 2 diabetes mellitus with hyperglycemia Plan: Decrease the amount of carbohydrate intake, pasta, bread, rice and potatoes are all sugar and that is aside from all the sweet stuff, remember that fruits are good but they are Sweet also. Hemoglobin A1c goal of less than 6.5 patient is diet controlled (3) Hypercholesterolemia: Code(s): E78.00 - Pure hypercholesterolemia, unspecified Plan: Avoid fried foods, chicken skin, eggs, butter margarine, pastries and meat. Be it pork or beef they have a lot of cholesterol LDL goal of less than 100 and triglyceride of less than 150. On atorvastatin 80 mg once a day (4) Hypothyroid: Code(s): E03.9 - Hypothyroidism, unspecified Qualifiers: Hypothyroidism type: acquired Qualified Code(s): E03.9 - Hypothyroidism, unspecified Plan: Continue with thyroid medication (5) Breast cancer screening by mammogram: Code(s): Z12.31 - Encounter for screening mammogram for malignant neoplasm of breast Plan: Patient is reminded about mammogram Orders: Orders AMB Hemoglobin A1c Today E11.65 - Type 2 diabetes mellitus with hyperglycemia MM tomosynthesis screening BI Today Z12.31 - Encounter for screening mammogram for malignant neoplasm of breast Thyroid Stimulating Hormone 3 Months E78.00 - Pure hypercholesterolemia, unspecified Lipid Panel 3 Months E78.00 - Pure hypercholesterolemia, unspecified Free T4 (Free Thyroxine) 3 Months E78.00 - Pure hypercholesterolemia, unspecified Comprehensive Met. Panel 3 Months E78.00 - Pure hypercholesterolemia, unspecified Hemoglobin A1c 3 Months E78.00 - Pure hypercholesterolemia, unspecified Referrals 2 Gastroenterology Referral Z12.11 - Encounter for screening for malignant neoplasm of colon Ophthalmology Referral E11.65 - Type 2 diabetes mellitus with hyperglycemia Medications: New rosuvastatin 40 mg PO DAILY 30 tabs 5RF E78.00 - Pure hypercholesterolemia, unspecified Discontinued atorvastatin Discontinued Reason: Patient Completed Course 80 mg PO DAILY 90 days 90 tabs 2RF E78.00 - Pure hypercholesterolemia, unspecified Coding Level of Care Code Est Pt Level 4 (50765) Diagnoses Colon cancer screening Z12.11 Type 2 diabetes mellitus with hyperglycemia E11.65 Hypercholesterolemia E78.00 Acquired hypothyroidism E03.9 Hypothyroidism type: acquired Breast cancer screening by mammogram Z12.
== END 2024-06-23 15:19 | disposition home or self-care (01) ==
PROVIDERS: PCP Internal Medicine; Visit Provider Internal Medicine
DX: Z12.11 Encounter for screening for malignant neoplasm of colon (principal); E11.65 Type 2 diabetes mellitus with hyperglycemia; E78.00 Pure hypercholesterolemia, unspecified; E03.9 Hypothyroidism, unspecified; Z12.31 Encounter for screening mammogram for malignant neoplasm of breast
CPT/HCPCS: 83036; 99214

== ENCOUNTER 2024-10-31 14:25 | Outpatient (AMB) | payer OTHER, SELFPAY ==
--- NOTE | 2024-10-31 14:32 | A.OFFPC_ITS ---
Vital Signs 10/31/24 14:34 Height 5 ft Weight 139 lb BMI 27.1 BP 118/70 Blood Pressure Location Lt brachial Position Sitting Pulse 76 Pulse Source Pulse Oximeter Pulse Oximetry (%) 97 Oxygen Delivery Method Room Air Intake Visit Reasons: DM , Cholesterol Intake Note: Patient here for a follow up DM, Cholesterol Confectionery Cooker Required: No Accompanied by: Self / Same As Patient Allergies Penicillins [PENICILLINS] Allergy (Unknown, Verified 10/31/24 14:44) RASH Tobacco use date assessed: 02/24/24 Dental Screening Dental Screen Date: 10/31/24 HPI DM , Cholesterol HPI Details 54-year-old overweight female with a his tory of controlled diabetes mellitus hypercholesterolemia hypothyroidism last seen in May 2024. Patient was advised to get a mammogram and colonoscopy. scheduled colon 11/15/2024. Patient states has been very stressed as family is sick and has been bringing h er helping her with her sickness. [facility] Medical History Learning disability Concussion Hearing loss Pelvic fracture Hypercholesterolemia Stress incontinence Overweight (BMI 25.0-29.9) Vitamin D deficiency Hypothyroid Surgical History History of colonoscopy History of ear surgery History of nasal surgery History of tubal ligation Family History Father Colon cancer Myocardial infarction Mother Diabetes Maternal Grandfather Myocardial infarction Paternal Grandmother Mouth cancer Gastric cancer Paternal Uncle Colon cancer Spinal cord cancer Sister Uterine cancer Social History Household Members Other:: . 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 Sexual orientation: Straight/Heterosexual Gender identity: Female Cognitive needs: No Hearing needs: No Vision needs: Yes Questionnaire Thrive Questionnaire Date Thrive assessed: 10/31/24 I am a: Patient What is your living situation today?: I have a steady place to live Within the past 12 months, did the food you bought not last and you didn't have the money to get more?: Never true Within the past 12 months, did you worry whether your food would run out before you got money to buy more?: Never true Do you have trouble paying for medicines?: No Do you have trouble getting transportation to medical appointments?: No Do you have trouble paying your heating and electricity bill?: No Do you have trouble taking care of your child, family member or friend?: No Do you have trouble with day-to-day activities such as bathing, preparing meals, shopping, managing finances, etc.?: No Are you currently unemployed and looking for a job?: No Are you interested in more education?: No Please select the resources that you would like help with: None Currently or been in a relationship where the following occur: No concerns reported THRIVE Score: 0 AUDIT C Alcohol Use Questionnaire (AUDIT-C) 1. How often do you have a drink containing alcohol?: Monthly or less 2. How many drinks containing alcohol do you have on a typical day when you are drinking?: 1 or 2 3. How often do you have six or more drinks on one occasion?: Never Total Score: 1 ISAAC-7 AMB Questionnaire ISAAC-7 Date ISAAC - 7 assessed: 10/31/24 Feeling nervous, anxious, or on edge: 0 = Not at all Not being able to stop or control worryin = Not at all Worrying too much about different things: 0 = Not at all Trouble relaxin = Not at all Being so restless that it is hard to sit still: 0 = Not at all Becoming easily annoyed or irritable: 0 = Not at all Feeling afraid as if something awful might happen: 0 = Not at all Total ISAAC-7 score (0-4 normal; 5-9 mild; 10-14 moderate; 15-21 severe): 0 Source: Developed by Drs. Luis Gray, Lisa Valdes, Niraj Martin and colleagues, with an educational smita from [employer]. Physical exam (Primary Care) Vital Signs: Last Vital Signs Pulse 76 10/31/24 14:34 BP 118/70 10/31/24 14:34 Pulse Ox 97 10/31/24 14:34 Oxygen Delivery Method Room Air 10/31/24 14:34 BMI result Body Mass Index 27.1 Tobacco/Smoking Status: Tobacco use Status Tobacco use date assessed 02/24/24 10/31/24 14:36 Patient Tobacco Use Status Never used Tobacco 10/31/24 14:36 e-Cigarette/Vaping Use Never Used 10/31/24 14:36 Thrive Assessment: Date of Thrive Assessment Date Thrive assessed 10/31/24 10/31/24 14:36 Currently or been in a relationship where the following occur: No concerns reported Const General: alert; No acute distress Eyes Conjunctivae: conjunctivae normal Resp Auscultation: clear to auscultation bilaterally Cardio Rate: regular rate Rhythm: regular rhythm GI Inspection: Yes normal to inspection Extrem General: Yes normal to inspection and No edema Coding Level of Care Code Est Pt Level 4 (58374) Complex EM visit Add On G2211 Diagnoses Breast cancer screening by mammogram Z12.31 Colon cancer screening Z12.11 Type 2 diabetes mellitus with hyperglycemia, without long-term current use of insulin E11.65 Diabetes mellitus joint terminal 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 Patient does have a schedule with Gastroenterology (3) Type 2 diabetes mellitus with hyperglycemia: Code(s): E11.65 - Type 2 diabetes mellitus with hyperglycemia Category: Medical Qualifiers: Diabetes mellitus group home insulin use: without group home use Qualified Code(s): E11.65 - Type 2 diabetes mellitus with hyperglycemia Plan: Decrease the amount of carbohydrate intake, pasta, bread, rice and potatoes are all sugar and that is aside from all the sweet stuff, remember that fruits are good but they are Sweet also. Diet controlled hemoglobin A1c goal of less than 6.5. reminded eye exam (4) Hypercholesterolemia: Code(s): E78.00 - Pure hypercholesterolemia, unspecified Category: Medical Plan: Avoid fried foods, chicken skin, eggs, butter margarine, pastries and meat. Be it pork or beef they have a lot of cholesterol LDL goal of less than 100 and triglyceride of less than 150 on rosuvastatin 40 mg once a day blood work needed (5) Hypothyroid: Code(s): E03.9 - Hypothyroidism, unspecified Category: Medical Qualifiers: Hypothyroidism type: acquired Qualified Code(s): E03.9 - Hypothyroidism, unspecified Plan: Continue with thyroid medication and advised to get blood work done Orders: Orders AMB Hemoglobin A1c Today E11.65 - Type 2 diabetes mellitus with hyperglycemia Microalbumin, Random (w Creat) Today E11.65 - Type 2 diabetes mellitus with hyperglycemia Creatinine Urine Today E11.65 - Type 2 diabetes mellitus with hyperglycemia Complete Blood Count Auto Diff Today E11.65 - Type 2 diabetes mellitus with hyperglycemia Vitamin D 25-OH Total Today E11.65 - Type 2 diabetes mellitus with hyperglycemia Influenza [id number] Immunization Today Z23 - Encounter for immunization Vitamin B12 and Folate Today E11.65 - Type 2 diabetes mellitus with hyperglycemia Medications: New Fluarix Triv [id number] (PF) (flu vacc [id number] 6mos up(PF)) 0.5 mL IM ONCE 0.5 mL 0RF NS Z23 - Encounter for immunization
[2024-10-31 14:34] VITALS: BP 118/70; PULSE 76; O2SAT 97; BMI 27.1
== END 2024-10-31 15:09 | disposition home or self-care (01) ==
PROVIDERS: PCP Internal Medicine; Visit Provider Internal Medicine
DX: Z12.31 Encounter for screening mammogram for malignant neoplasm of breast (principal); Z12.11 Encounter for screening for malignant neoplasm of colon; E11.65 Type 2 diabetes mellitus with hyperglycemia; E78.00 Pure hypercholesterolemia, unspecified; E03.9 Hypothyroidism, unspecified; Z23 Encounter for immunization

== ENCOUNTER → 2024-10-31 14:25 | Outpatient (BNVA) | payer OTHER, SELFPAY | PROVIDERS: PCP Internal Medicine; Visit Provider Internal Medicine | DX: Z23 Encounter for immunization (principal); E11.65 Type 2 diabetes mellitus with hyperglycemia; E78.00 Pure hypercholesterolemia, unspecified; E03.9 Hypothyroidism, unspecified | CPT/HCPCS: 90471; 90656; 96127; 99212 ==

== ENCOUNTER 2025-02-15 07:35 | Outpatient (REF) | payer OTHER, SELFPAY ==
[2025-02-15 07:51] LABS: MANUAL DIFF FLAG NO
[2025-02-15 08:14] LABS: Basophils Absolute Auto 0.1 X10*3/uL (0.0-0.2); Eosinophils Absolute Auto 0.3 X10*3/uL (0.0-0.4); Eosinophils Percent Auto 4.1 % (0-4); Hematocrit 42.9 % (37.0-47.0); Hemoglobin 14.3 g/dl (12.0-16.0); Imm Gran Abs Auto 0.02 X10*3/uL (0.00-0.03); Imm Gran Pct Auto 0.3 % (0.0-0.4); Lymphocytes Absolute Auto 1.4 X10*3/uL (1.2-4.9); Lymphocytes Percent Auto 21.8 % (20-40); Mean Corpuscular HGB Conc 33.3 g/dl (31.0-35.0); Mean Corpuscular Volume 90.1 fL (80.0-98.0); Mean Platelet Volume 9.6 fL (9.4-12.3); Monocytes Absolute Auto 0.4 X10*3/uL (0.1-1.2); Monocytes Percent Auto 6.8 % (2-11); Neutrophils Absolute Auto 4.2 x10*3/uL (2.0-8.3); Platelet Count 336 X10*3/uL (160-400); Red Blood Count 4.76 X10*6/uL (4.20-5.50); Red Cell Distribution Width 13.2 % (11.0-16.0); White Blood Count 6.3 X10*3/uL (4.8-10.8)
[2025-02-15 08:21] LABS: Estimated Average Glucose 126 mg/dL; Total Hemoglobin (HGBA1C) 3728.5182 umol/L
[2025-02-15 09:06] LABS: Creatinine Urine 179.51 mg/dL; Microalbum/Creatinine Ratio Ur 11.1 ug/mg cr (<30)
[2025-02-15 09:11] LABS: Alanine Aminotransferase 24 U/L (0-31); Albumin Level 4.7 g/dL (3.5-5.0); Alkaline Phosphatase 100 U/L (39-117); Anion Gap 13 (12-20); Aspartate Amino Transferase 19 U/L (5-31); Bilirubin Total 0.9 mg/dL (0.0-1.0); Blood Urea Nitrogen 15 mg/dL (9-16); Calcium 9.9 mg/dL (8.4-10.2); Carbon Dioxide 28 mmol/L (22-29); Chloride 105 mmol/L (96-108); Cholesterol 173 mg/dL (<200); Estimated Glomerular Filt Rate > 60; Glucose Random 164 mg/dL (60-115); HDL Cholesterol 61 mg/dL (>40); LDL Cholesterol Calculated 88 mg/dL (<100); Potassium 4.8 mmol/L (3.3-5.1); Sodium 141 mmol/L (135-145); Total Protein 8.2 g/dL (6.5-8.0); Triglycerides 120 mg/dL (<150)
[2025-02-15 09:29] LABS: Free T4 (Free Thyroxine) 1.27 ng/dL (0.71-1.85); Thyroid Stimulating Hormone 0.04 uIU/mL (0.32-4.0); Vitamin D 25-OH Total 24.5 ng/mL (>30)
[2025-02-15 09:35] LABS: Folate 12.4 ng/mL (> or = 4.0); Vitamin B12 361 pg/mL (200-900)
== END 2025-02-15 07:36 | disposition home or self-care (01) ==
LOC: HO.LAB 07:35
PROVIDERS: PCP Internal Medicine; Visit Provider Internal Medicine
DX: E78.00 Pure hypercholesterolemia, unspecified (principal); E11.65 Type 2 diabetes mellitus with hyperglycemia; E03.9 Hypothyroidism, unspecified
CPT/HCPCS: 36415; 80053; 80061; 82043; 82306; 82570; 82607; 82746; 83036; 84439; 84443; 85025

== ENCOUNTER 2025-02-20 15:46 | Outpatient (AMB) | payer OTHER, SELFPAY ==
[2025-02-20 15:58] VITALS: BP 122/72; PULSE 92; TEMP 36.3; O2SAT 97; BMI 27.2
--- NOTE | 2025-02-20 15:58 | MHC.PC.OV ---
Vital Signs 02/20/25 15:58 Height 5 ft Weight 139 lb 6 oz BMI 27.2 BP 122/72 Blood Pressure Location Lt brachial Position Sitting Pulse 92 Pulse Source Pulse Oximeter Temp 97.3 F Temp Source Temporal Artery Scan Pulse Oximetry (%) 97 Oxygen Delivery Method Room Air Intake Visit Reasons: /DM, Hypercholesterol Facilities Custodian Required: No Accompanied by: Self / Same As Patient Allergies Penicillins [PENICILLINS] Allergy (Unknown, Verified 02/20/25 16:03) RASH Medication List - Last Reconciled 02/20/25 by Bruce Rawls MD cholecalciferol (vitamin D3) 25 mcg PO DAILY levothyroxine 112 mcg orally ; 90 days multivitamin 1 tab PO DAILY omega-3 fatty acids (Fish Oil Concentrate) 1,000 mg PO DAILY rosuvastatin 40 mg PO DAILY Tobacco use date assessed: 02/20/25 Dental Screening Dental Screen Date: 02/20/25 Did you have a dental visit in the last 12 months?: Yes Did you have a dental problem in the last 6 months where you did not have access to dental care?: No Was dental information given to patient?: Patient has dentist [facility] Medical History Learning disability Concussion Hearing loss Pelvic fracture Hypercholesterolemia Stress incontinence Overweight (BMI 25.0-29.9) Vitamin D deficiency Hypothyroid Surgical History History of colonoscopy History of ear surgery History of nasal surgery History of tubal ligation Family History Father Colon cancer Myocardial infarction Mother Diabetes Maternal Grandfather Myocardial infarction Paternal Grandmother Mouth cancer Gastric cancer Paternal Uncle Colon cancer Spinal cord cancer Sister Uterine cancer Social History Household Members Other:: . 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 1. Little interest or pleasure in doing things: not at all 2. Feeling down, depressed, or hopeless: not at all 3. Trouble falling or staying asleep, or sleeping too much: not at all 4. Feeling tired or having little energy: not at all 5. Poor appetite or overeating: not at all 6. Feeling bad about yourself - or that you are a failure or have let yourself or your family down: not at all 7. Trouble concentrating on things, such as reading the newspaper or watching television: not at all 8. Moving or speaking so slowly that other people could have noticed. Or the opposite - being so fidgety or restless that you have been moving around a lot more than usual: not at all 9. Thoughts that you would be better off or of hurting yourself in some way: not at all Total score: 0 Depression Screening Interpretation: Negative Depression Screening Done: Yes 76708 - PHQ-9 Billing: Yes Source: Developed by Drs. Luis Gray, Lisa Valdes, Niraj Martin and colleagues, with an educational smita from [employer], an [employer]. Thrive Questionnaire Date Thrive assessed: 02/20/25 I am a: Patient What is your living situation today?: I have a steady place to live Within the past 12 months, did the food you bought not last and you didn't have the money to get more?: Never true Within the past 12 months, did you worry whether your food would run out before you got money to buy more?: Never true Do you have trouble paying for medicines?: No Do you have trouble getting transportation to medical appointments?: No Do you have trouble paying your heating and electricity bill?: No Do you have trouble taking care of your child, family member or friend?: No Do you have trouble with day-to-day activities such as bathing, preparing meals, shopping, managing finances, etc.?: No Are you currently unemployed and looking for a job?: No Are you interested in more education?: No Please select the resources that you would like help with: None Currently or been in a relationship where the following occur: No concerns reported THRIVE Score: 0 AUDIT C Alcohol Use Questionnaire (AUDIT-C) 1. How often do you have a drink containing alcohol?: Monthly or less 2. How many drinks containing alcohol do you have on a typical day when you are drinking?: 1 or 2 3. How often do you have six or more drinks on one occasion?: Never Total Score: 1 ISAAC-7 AMB Questionnaire ISAAC-7 Date ISAAC - 7 assessed: 02/20/25 Feeling nervous, anxious, or on edge: 0 = Not at all Not being able to stop or control worryin = Not at all Worrying too much about different things: 0 = Not at all Trouble relaxin = Not at all Being so restless that it is hard to sit still: 0 = Not at all Becoming easily annoyed or irritable: 0 = Not at all Feeling afraid as if something awful might happen: 0 = Not at all Total ISAAC-7 score (0-4 normal; 5-9 mild; 10-14 moderate; 15-21 severe): 0 Source: Developed by Drs. Luis Gray, Lisa Valdes, Niraj Martin and colleagues, with an educational smita from [employer], an [employer]. ISAAC-7 Assessment Billing ISAAC-7 Assessment Tool: ISAAC-7 Assessment 34629 Physical exam (Primary Care) Vital Signs: Last Vital Signs Temp 97.3 F 02/20/25 15:58 Pulse 92 02/20/25 15:58 BP 122/72 02/20/25 15:58 Pulse Ox 97 02/20/25 15:58 Oxygen Delivery Method Room Air 02/20/25 15:58 BMI result Body Mass Index 27.2 Tobacco/Smoking Status: Tobacco use Status Tobacco use date assessed 02/20/25 02/20/25 16:04 Patient Tobacco Use Status Never used Tobacco 02/20/25 16:00 e-Cigarette/Vaping Use Never Used 02/20/25 16:00 PHQ-9: PHQ-9 Score PHQ-9: Total score 0 02/20/25 16:07 Depression Screening Interpretation: Negative Thrive Assessment: Date of Thrive Assessment Date Thrive assessed 02/20/25 02/20/25 16:04 Currently or been in a relationship where the following occur: No concerns reported Const General: alert; No acute distress Eyes Conjunctivae: conjunctivae normal Resp Auscultation: clear to auscultation bilaterally Cardio Rate: regular rate Rhythm: regular rhythm GI Inspection: Yes normal to inspection Extrem General: Yes normal to inspection and No edema Coding Level of Care Code Est Pt Level 4 (40208) Complex EM visit Add On G2211 Diagnoses Type 2 diabetes mellitus with hyperglycemia, without long-term current use of insulin E11.65 Diabetes mellitus parts counterman insulin use: without residential use Hypercholesterolemia E78.00 Acquired hypothyroidism E03.9 Hypothyroidism type: acquired Overweight (BMI 25.0-29.9) E66.3 Breast cancer screening by mammogram Z. Additional Codes ISAAC-7 Assessment Billing - ISAAC-7 Assessment Tool: ISAAC-7 Assessment 55346 ([id number]) PHQ-9 - 31810 - PHQ-9 Billing: Yes ([id number]) Assessment & Plan Assessment & Plan (1) Type 2 diabetes mellitus with hyperglycemia: Code(s): E11.65 - Type 2 diabetes mellitus with hyperglycemia Category: Medical Qualifiers: Diabetes mellitus parts counterman insulin use: without parts counterman use Qualified Code(s): E11.65 - Type 2 diabetes mellitus with hyperglycemia Plan: Decrease the amount of carbohydrate intake, pasta, bread, rice and potatoes are all sugar and that is aside from all the sweet stuff, remember that fruits are good but they are Sweet also. Hemoglobin A1c goal of less than 6.5 patient diet controlled (2) Hypercholesterolemia: Code(s): E78.00 - Pure hypercholesterolemia, unspecified Category: Medical Plan: Avoid fried foods, chicken skin, eggs, butter margarine, pastries and meat. Be it pork or beef they have a lot of cholesterol LDL goal of less than 100 and triglyceride of less than 150 on rosuvastatin 40 mg once a day (3) Hypothyroid: Code(s): E03.9 - Hypothyroidism, unspecified Category: Medical Qualifiers: Hypothyroidism type: acquired Qualified Code(s): E03.9 - Hypothyroidism, unspecified Plan: Noted TSH to be low advised changes in dose and retest in 6 weeks (4) Overweight (BMI 25.0-29.9): Code(s): E66.3 - Overweight Category: Medical Plan: Diet and exercise (5) Breast cancer screening by mammogram: Code(s): Z12.31 - Encounter for screening mammogram for malignant neoplasm of breast Category: Medical Plan: Patient is reminded about mammogram Plan History of Present Illness The patient is a 54-year-old female presenting for a follow-up regarding her chronic conditions. She has hypothyroidism, previously controlled with medication, but recent low TSH levels have led to dosage adjustments. Her hypercholesterolemia is being treated with rosuvastatin, and her LDL level is currently within target. Diabetes mellitus management includes maintaining a fasting blood glucose level, which remains elevated; however, her hemoglobin A1c is stable. She has been non-compliant with vitamin D supplementation, contributing to her low levels. Her last comprehensive blood panel indicates normal results aside from these chronic issues. She is due for standard cancer screenings, including a mammogram and colonoscopy, with the latter scheduled soon. The patient has not been diligent with routine eye check-ups, partly due to familial obligations and stated stress related to her mother's health needs. Health Maintenance - Mammogram due: last in March 2023 - Colonoscopy scheduled for February 24 - Routine eye examination recommended: patient to schedule - Vitamin D supplementation advised - Lifestyle modifications for weight management - Importance of routine exercise stressed Social History - Family stress: concerns over mother's health and upcoming dialysis - Utilizes walking as part of exercise regimen - Lives with and manages care for multiple dogs - Noncompliance with some medication frequencies due to personal distractions Review of Systems - General: Reports being stressed - Gastrointestinal: Denies issues outside of chronic management routine - Endocrine: Denies significant symptoms beyond noted conditions Physical Exam Results Plan The patient's treatment plan involves adjusting medication for hypothyroidism, continuing rosuvastatin for cholesterol control, and enhancing diet to manage diabetes effectively. Vitamin D supplementation and addressing overdue screenings are critical components. Lifestyle adjustments include exercise to support weight management, with an emphasis on stress reduction. Physical and eye screenings are recommended for preventive care. Patient was informed and verbally consented to the use of an ambient scribe for clinic note documentation during this visit. Discussion Notes During the visit, I discussed with the patient the adjustment needed in her thyroid medication due to low TSH levels, advising a dosage reduction with a subsequent re-evaluation in six weeks. I reiterated the goals for her diabetic management, including maintaining an A1c of less than 6.5%, and the necessity for dietary vigilance. For her cholesterol, the current regimen with rosuvastatin will continue. I stressed the importance of vitamin D supplementation and outlined the due cancer screenings, particularly scheduling the mammogram and completing the colonoscopy as planned. We talked about balancing family responsibilities while managing health conditions, and I emphasized stress reduction techniques and maintaining an active lifestyle. Patient Instructions
--- OUTSIDE RECORDS SUMMARY | 2025-02-20 18:31 | XMS_ITS ---
Author Organization [facility] Address [address] [place] [id number] Care Team Providers Care Muffle Operator Name Role Phone Bruce Rawls MD Primary Care Provider Luis Mills [phone] Allergies Allergen (clinical drug ingredient) Drug/Non Drug Allergy documented on EMR Reaction Allergy Type Onset Date Status penicillin G Penicillin G Sodium Unknown Drug Allergy Active REASON FOR VISIT Patient presents today for a COLON SCREENING Medications Medication SIG (Take, Route, Frequency, Duration) Notes Start Date End Date Status Fish Oil 1000 MG 1 capsule Orally Onc e a day for 30 day(s) Active Rosuvastatin Calcium 40 MG Oral for 90 Active Levothyroxine Sodium 112 MCG 1 tablet on an empty stomach in the morning Orally Once a day Active Social History Tobacco Use: Social History Observation Description Date Details (start date - stop date) Never Smoker NA - NA Tobacco Use/Smoking Question Answer Notes Patient is a nonsmoker Alcohol Screen Question Answer Notes Did you have a drink contain ing alcohol in the past year? Yes How often did you have a dri nk containing alcohol in the past year? 2 to 3 times a week (3 points) How many drinks did you have on a typical day when you were drinking in the past year? 1 or 2 drinks (0 point) Points 3 Interpretation Positive Section Notes: No sig alcohol, nonsmoker Vital Signs Blood pressure systolic 00 mm Hg 11/15/20 24 Blood pressure diastolic 00 mm Hg 024 Height 60 in 11/15/2024 Weight 140 lbs 11/15/2024 BMI 27.34 kg/m2 11/15/2024 Encounters Encounter Location Date Provider Diagnosis [facility] [address] [place] [address] 11/15/2024 Luis Noriega Encounter for screen ing for malignant neoplasm of colon Z12.11 ; Preprocedural examination Z01.818 and Family history of colon cancer in father Z80.0 Assessments Encounter Date Diagnosis (ICD Code) Assessment Notes Treatment Notes Treatment Clinical Notes Section Notes 11/15/2024 Encounter for screening for malignant neoplasm of colon (ICD-10 - Z12.11) Stop fish oil for 1 week before the colonoscopy Overall, Ksenia appears quite well. Given her significant family history of her father having had colon cancer at a young age, her age and excellent clinical appearance, and her last colonoscopy being over 5 years ago, I did recommend a followup colonoscopy for further screening purposes. We did review the rationale for this in regard to colon cancer prevention. Full consent is obtained for this, including risks of bleeding and perforation. The procedure will be done with monitored anesthesia care. She was advised to stop fish oil for one week before the procedure. Ksenia and her daughter were comfortable with this plan. Thank you again for allowing me to participate in Ksenia's care. I shall continue to keep you advised of her progress. 11/15/2024 Preprocedural examination (ICD-10 - Z01.818) Overall, Ksenia appears quite well. Given her significant family history of her father having had colon cancer at a young age, her age and excellent clinical appearance, and her last colonoscopy being over 5 years ago, I did recommend a followup colonoscopy for further screening purposes. We did review the rationale for this in regard to colon cancer prevention. Full consent is obtained for this, including risks of bleeding and perforation. The procedure will be done with monitored anesthesia care. She was advised to stop fish oil for one week before the procedure. Ksenia and her daughter were comfortable with this plan. Thank you again for allowing me to participate in Ksenia's care. I shall continue to keep you advised of her progress. 11/15/2024 Family history of colon cancer in father (ICD-10 - Z80.0) Overall, Ksenia appears quite well. Given her significant family history of her father having had colon cancer at a young age, her age and excellent clinical appearance, and her last colonoscopy being over 5 years ago, I did recommend a followup colonoscopy for further screening purposes. We did review the rationale for this in regard to colon cancer prevention. Full consent is obtained for this, including risks of bleeding and perforation. The procedure will be done with monitored anesthesia care. She was advised to stop fish oil for one week before the procedure. Ksenia and her daughter were comfortable with this plan. Thank you again for allowing me to participate in Ksenia's care. I shall continue to keep you advised of her progress. Plan Of Treatment Treatment Notes Assessment Notes Encounter for screening for malignant neoplasm of colon Stop fish oil for 1 week before the colonoscopy Future Test Test Name Order Date COLONOSCOPY 11/15/2024 Next Appt Details Follow Up: prn, Reason: Provider Name:Luis Freeman Hari , 02/24/2025 08:30:00 AM, [address] [place] [address], [id number], Progress Notes * KSENIA CONTRERAS ADOB:11/1969 (54 yo F)Acc No.[id number]:11/15/2024 Progress Notes Patient:?KSENIA CONTRERAS Provider:?Luis Noriega MD :1970???Age:54 Y???Sex:Female D ate:11/15/2024 Address:[address] [place], [place] [id number] Pcp:Bruce Rawls MD Subjective: * Chief Complaints: * ???Patient presents today fo r a COLON SCREENING * HPI: ???incontinence:? I saw Ksenia in the office today for evaluation of her family history of colorectal cancer and need for colorectal cancer screening. She was accompanied by her daughter, Beata. ?I last saw Ksenia in February of 2019, at which time she underwent a negative followup screening colonoscopy. Her family history is notable for her father having of colon cancer in his early 60s. Ksenia presently feels well. She denies any change in bowel habits, hematochezia, or melena. She denies any significant heartburn, dysphagia, anorexia, nausea, vomiting, nor early satiety. She denies abdominal pain, jaundice, nor unintentional weight loss. * ROS:?General/Constitutional:?Change in appetite?denies.?Chills?denies.?Fatigue?denies.?Ophthalmologic:?Comments?all negative.?ENT:?Comments?Hard of hearing--uses bilateral hearing aids.?Respiratory:?hemoptysis?denies.?Cough?denies.?Cardiovascular:?Chest pain?denies.?Orthopnea?denies.?Gastrointestinal:?Comments?See HPI for details.?Genitourinary:?Hematuria?denies.?Dysuria?denies.?Musculoskeletal:?Painful joints?denies.?Weakness?denies.?Skin:?Itching?denies.?Rash?denies.?Neurologic:?Headache?denies.?Seizures?denies.?Psychiatric:?Comments?all negative.? * Medical History:? * Surgical History:?Nasal and ear surgeries BTL Tongue surgery due to fall as child and bit tongue * Hospitalization/Major Diagno stic Procedure:?No Hospitalization History. * Family History:?Father: dece ased, at age 62 from colonn cancer, diagnosed with Colon cancer.?Mother: alive, kidney ds, diagnosed with Diabetes.?Siblings: precancerous polyps removed sister .? * Social History:?Tobacco Use:?Tobacco Use/Smoking?Patient is a?nonsmoker.?Drugs/Alcohol:?Alcohol Screen?Did you have a drink containing alcohol in the past year??Yes,?How often did you have a drink containing alcohol in the past year??2 to 3 times a week (3 points),?How many drinks did you have on a typical day when you were drinking in the past year??1 or 2 drinks (0 point),?Points?3,?Interpretation?Positive.?Miscellaneous:?Marital status: . 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 ???No sig alcohol, nonsmoker. * Medications:?TakingFish Oil 1000 MG Capsule 1 capsule Orally Once a dayLevothyroxine Sodium 112 MCG Tablet 1 tablet on an empty stomach in the morning Orally Once a dayRosuvastatin Calcium 40 MG Tablet Oral Taking Fish Oil 1000 MG Capsule 1 capsule Orally Once a dayTaking Levothyroxine Sodium 112 MCG Tablet 1 tablet on an empty stomach in the morning Orally Once a dayTaking Rosuvastatin Calcium 40 MG Tablet Oral DiscontinuedAdvil Migraine 200 MG Capsule 1 capsule with food or milk as needed Orally as neededMedication List reviewed and reconciled with the patientDiscontinued Advil Migraine 200 MG Capsule 1 capsule with food or milk as needed Orally as neededMedication List reviewed and reconciled with the patient * Allergies:?Penicillin G Mel sim[Allergies Verified] Objective: * Vitals:?Wt: 140 lbs, Ht: 60 in, BMI:27.34 Index, BP: 00/00 mm Hg. * Examination: ???General Examination: ?GENERAL APPEARANCE:?pleasant, well nourished, well developed, in no acute distress.?EYES:?sclera non-icteric.?ORAL CAVITY:?mucosa moist.?NECK/THYROID:?no cervical lymphadenopathy, neck supple.?SKIN:?nonjaundiced, no spider angiomata.?HEART:?S1, S2 normal.?LUNGS:?clear to auscultation bilaterally.?ABDOMEN:?normal bowel sounds, no guarding or rigidity, no guarding or rigidity, no masses palpable, soft, nontender, nondistended.?EXTREMITIES:?no edema.?NEUROLOGIC:?alert and oriented.? Assessment: * Assessment: 1.?Preprocedural examination - Z01.818 (Primary)?2.?Encounter for screening for malignant neoplasm of colon - Z12.11?3.?Family history of colon cancer in father - Z80.0? Overall, Ksenia appears q uite well. Given her significant family history of her father having had colon cancer at a young age, her age and excellent clinical appearance, and her last colonoscopy being over 5 years ago, I did recommend a followup colonoscopy for further screening purposes. We did review the rationale for this in regard to colon cancer prevention. Full consent is obtained for this, including risks of bleeding and perforation. The procedure will be done with monitored anesthesia care. She was advised to stop fish oil for one week before the procedure. Ksenia and her daughter were comfortable with this plan. Thank you again for allowing me to participate in Ksenia's care. I shall continue to keep you advised of her progress. Plan: * Treatment: Notes: Stop fish oil for 1 week before the colonoscopy??2.?Family history of colon cancer in father?Procedure: COLONOSCOPY (Ordered for 11/15/2024)* with MACsched for 02/24/25 at 10:20 ammiralax * Procedure Codes:?3017F COLOR ECTAL CA SCREEN DOC [id number] TOBACCO [id number] BP SCR NOT PRFRM REC REASON NOS * Preventive Medicine:? ??Counseling:?Care goal follow-up plan:?Above Normal BMI Follow-up?Giving encouragement to exercise,?BMI management provided?Yes.? * Follow Up:?prn * * Sign off status: Completed true * Provider:?Luis Noriega MD Date:? 024 Generated for Odalys chris/Yinka/Mattitting on:?02/20/2025 06:31 PM EDT History and Physical Notes * HPI (History of Present Illness) Category Sub-Category Detail Notes Category Not es incontinence I saw Ksenia in the office today for evaluation of her family history of colorectal cancer and need for colorectal cancer screening. She was accompanied by her daughter, Beata. I last saw Ksenia in February of 2019, at which time she underwent a negative followup screening colonoscopy. Her family history is notable for her father having of colon cancer in his early 60s. Ksenia presently feels well. She denies any change in bowel habits, hematochezia, or melena. She denies any significant heartburn, dysphagia, anorexia, nausea, vomiting, nor early satiety. She denies abdominal pain, jaundice, nor unintentional weight loss. Examination Category Sub-Category Detail Notes Category Not es General Examination GENERAL APPEARANCE: pleasant , well nourished, well developed, in no acute distress HEAD: EYES: sclera non-icteric EARS: NOSE: THROAT: NECK/THYROID: no cervical lymphade nopathy, neck supple HEART: S1, S2 normal CHEST: LUNGS: clear to auscultatio n bilaterally ABDOMEN: normal bowel sounds, no guarding or rigidity, no guarding or rigidity, no masses palpable, soft, nontender, nondistended NEUROLOGIC: alert and oriented SKIN: nonjaundiced, no spi jagjit angiomata EXTREMITIES: no edema PERIPHERAL PULSES: BACK: BREASTS: MUSCULOSKELETAL: MALE GENITOURINARY: LYMPH NODES: RECTAL EXAM: FEMALE GENITOURINARY: ORAL CAVITY: mucosa moist
--- OUTSIDE RECORDS SUMMARY | 2025-02-20 18:31 | XMS_ITS | Patient Health Record ---
Author Organization [facility] Address [address] [place] [address] Care Team Providers Care Line Camera Operator Name Role Phone Bruce Rawls MD Primary Care Provider Luis Mills [phone] Allergies Allergen (clinical drug ingredient) Drug/Non Drug Allergy documented on EMR Reaction Allergy Type Onset Date Status penicillin G Penicillin G Sodium Unknown Drug Allergy Active Reason For Referral No Information Medications Medication SIG (Take, Route, Frequency, Duration) Notes Start Date End Date Status Fish Oil 1000 MG 1 capsule Orally Onc e a day for 30 day(s) Active Rosuvastatin Calcium 40 MG Oral for 90 Active Levothyroxine Sodium 112 MCG 1 tablet on an empty stomach in the morning Orally Once a day Active Immunizations Vaccine Route Administration Date Status Comme nts Influenza Unknown 2018 Administered Social History Tobacco Use: Social History Observation [...] Positive Section Notes: No sig alcohol, nonsmoker No sig alcohol, nonsmoker Problems Problem Type SNOMED Code ICD Code Onset Dates Problem Status W/U Status Risk Notes Problem 856608951 Encounter for screening for malignant neoplasm of colon (Z12.11) Active confirmed Problem [id number] Preprocedural examination (Z01.818) Active confirmed Problem [id number] Family history o f colon cancer in father (Z80.0) Active confirmed Vital Signs Blood pressure diastolic 00 mm Hg 11/15/2024 Height 60 in 11/15/2024 Blood pressure systolic 00 mm Hg 11/15/2024 Weight 140 lbs 11/15/2024 BMI 27.34 kg/m2 11/15/2024 Encounters Encounter Location Date Provider Diagnosis [facility] [address] [place] [address] 11/15/2024 Luis Noriega Encounter for screen ing [...] advised of her progress. Plan Of Treatment Future Test Test Name Order Date COLONOSCOPY 01/20/2019 COLONOSCOPY 11/15/2024 Next Appt Details Provider Name:Luis Noriega , 02/24/2025 08:30:00 AM, [address] [place] [address] , [place], [place], [id number], Insurance Providers Payer Name Payer Address Payer Phone Subscriber Number Group Number Insured Name Patient Relationship to Insured Coverage Start Date Coverage End Date [facility] [address] [address] [place], [place] [id number] KSENIA CONTRERAS Self - patient is the insured Medical (General) History Medical History History ICD Code Denies [place],DM,CVA,Lung disease,renal dise ase Urinary incontinence-mild Hypothyroidism Neg. colonoscopy in 01/2010 Negative screening colonoscopy in February of 2019 Surgical History Surgery Date(Month/Year) Nasal and ear surgeries BTL Tongue surgery due to fall as child and bit tongue
== END 2025-02-20 16:20 | disposition home or self-care (01) ==
LOC: HO.HMCH 15:46
PROVIDERS: PCP Internal Medicine; Visit Provider Internal Medicine
DX: E11.65 Type 2 diabetes mellitus with hyperglycemia (principal); E78.00 Pure hypercholesterolemia, unspecified; E03.9 Hypothyroidism, unspecified; E66.3 Overweight; Z12.31 Encounter for screening mammogram for malignant neoplasm of breast

== ENCOUNTER → 2025-02-20 15:46 | Outpatient (BNVA) | payer OTHER, SELFPAY | PROVIDERS: PCP Internal Medicine; Visit Provider Internal Medicine | DX: E11.65 Type 2 diabetes mellitus with hyperglycemia (principal); E78.00 Pure hypercholesterolemia, unspecified; E03.9 Hypothyroidism, unspecified; E66.3 Overweight | CPT/HCPCS: 96127; 99212 ==

== ENCOUNTER 2025-02-24 07:22 | Day surgery (SDC) | payer OTHER, SELFPAY ==
[2025-02-22 14:37] VITALS: BMI 27.3
--- NOTE | 2025-02-23 08:55 | HO.ANESPROP2 ---
Documented by User: Cecilia Gray NP 02/23/25 08:55 HPI - Anesthesia Eval Consult details Narrative: 54yo F for Colonoscopy PMFSH Active Problems Active Problems: All Active Problems Breast cancer screening by mammogram (Acute) Colon cancer screening (Acute) COVID-19 virus infection (Acute) Cervical cancer screening (Acute) Type 2 diabetes mellitus with hyperglycemia (Acute) Annual physical exam (Acute) Hypercholesterolemia (Acute) Overweight (BMI 25.0-29.9) (Acute) Hypothyroid (Acute) Past Medical History Medical History Learning disability Concussion Hearing loss Pelvic fracture Hypercholesterolemia Stress incontinence Overweight (BMI 25.0-29.9) Vitamin D deficiency Hypothyroid Family History Family History Father Colon cancer Myocardial infarction Mother Diabetes Maternal Grandfather Myocardial infarction Paternal Grandmother Mouth cancer Gastric cancer Paternal Uncle Colon cancer Spinal cord cancer Sister Uterine cancer Surgical History Surgical History History of surgery History of colonoscopy History of ear surgery History of nasal surgery History of tubal ligation Social History Social History Household Members Other:: . 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 Sexual orientation: Straight/Heterosexual Gender identity: Female Cognitive needs: No Hearing needs: No Vision needs: Yes Meds Allergies Allergy/AdvReac Type Severity Reaction Status Date / Time Penicillins [PENICILLINS] Allergy Unknown RASH Verified 02/20/25 16:03 Home Medications ?Medication ?Instructions ?Recorded ?Confirmed ?Last Taken ?Type cholecalciferol (vitamin D3) 25 25 mcg PO DAILY 10/11/20 02/20/25 Unknown History mcg (1,000 unit) capsule multivitamin 1 tab PO DAILY 10/11/20 02/20/25 Unknown History omega-3 fatty acids 1,000 mg 1,000 mg PO DAILY 10/11/20 02/22/25 Unknown History capsule (Fish Oil Concentrate) Exam Height,Weight and Vital Signs: Height 5 ft Weight 63.503 kg Assessment and Plan Assessment Anesthesia Assessment: Chart Reviewed Documented by User: Lorena Sultana MD 02/24/25 09:10 PMFSH Active Problems Active Problems: All Active Problems Breast cancer screening by mammogram (Acute) Colon cancer screening (Acute) COVID-19 virus infection (Acute) Cervical cancer screening (Acute) Type 2 diabetes mellitus with hyperglycemia (Acute) Annual physical exam (Acute) Hypercholesterolemia (Acute) Overweight (BMI 25.0-29.9) (Acute) Hypothyroid (Acute) H/o Facial/oral surgery with a lot of dental work Some N/V with prep yesterday. OK today Past Medical History Medical History Learning disability Concussion Hearing loss Pelvic fracture Hypercholesterolemia Stress incontinence Overweight (BMI 25.0-29.9) Vitamin D deficiency Hypothyroid Family History Family History Father Colon cancer Myocardial infarction Mother Diabetes Maternal Grandfather Myocardial infarction Paternal Grandmother Mouth cancer Gastric cancer Paternal Uncle Colon cancer Spinal cord cancer Sister Uterine cancer Family history of problems with anesthesia: No Surgical History Surgical History History of surgery History of colonoscopy History of ear surgery History of nasal surgery History of tubal ligation History of Problems with Anesthesia: No Social History Social History Household Members Other:: . 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 Sexual orientation: Straight/Heterosexual Gender identity: Female Cognitive needs: No Hearing needs: No Vision needs: Yes Meds Allergies Allergy/AdvReac Type Severity Reaction Status Date / Time Penicillins [PENICILLINS] Allergy Unknown RASH Verified 02/20/25 16:03 Home Medications ?Medication ?Instructions ?Recorded ?Confirmed ?Last Taken ?Type cholecalciferol (vitamin D3) 25 25 mcg PO DAILY 10/11/20 02/20/25 Unknown History mcg (1,000 unit) capsule multivitamin 1 tab PO DAILY 10/11/20 02/20/25 Unknown History omega-3 fatty acids 1,000 mg 1,000 mg PO DAILY 10/11/20 02/22/25 Unknown History capsule (Fish Oil Concentrate) Exam Height,Weight and Vital Signs: Height 5 ft Weight 63.503 kg Vital Signs Temp Pulse Resp BP Pulse Ox O2 Del Method 02/24/25 08:06 97.6 F 88 16 131/70 99 Room Air Airway Mallampati Class: IV (Small mouth, overbite, narrow anterior oropharynx ) TM Dist: >3cm Neck ROM: Full Loose/Missing/Broken Teeth: Yes (Missing wisdom teeth. Denies broken or loose teeth) Heart: RRR Lungs: CTAB Assessment and Plan Assessment Anesthesia Assessment: Anesthesia Plan Discussed and Chart Reviewed Final Anesthetic Review Family History of Problems with Anesthesia: No History of Problems with Anesthesia: No NPO: Yes ASA Class: II Final Preanesthetic Review: No Changes in Pt Med Stat, Meds/Allgs Chart Reviewed, Consent Obtained/Reviewed and Anes Risks/Benef Reviewed Patient Risk: Low Procedure Risk: Low Anesthetic Plan Anesthetic Plan: TIVA Disposition: Standard PACU
[2025-02-24 08:00] VITALS: BMI 26.7
[2025-02-24 08:06] VITALS: BP 131/70; PULSE 88; RESP 16; TEMP 36.4; O2SAT 99
[2025-02-24] MEDS: Lactated Ringers 1,000 ML 100 ML IVCONT (08:16)
[2025-02-24 09:38] VITALS: BP 113/57; PULSE 73; RESP 14; TEMP 36.3; O2SAT 98
--- NOTE | 2025-02-24 09:40 | P.BOP_ITS ---
Brief Operative Note Date of Service: 02/24/25 Pre-op diagnosis: Screening Post-op diagnosis: other (Colon polyp) Procedure: Colonoscopy to the cecum and TI with bx/removal of polyp Surgeon: Luis Noriega MD Anesthesia: MAC Was an Liability Claims Adjuster used for this Procedure?: No Estimated blood loss (mL): 2.0 Pathology: other (A. Cecal polyp) Condition: stable Disposition: PACU
[2025-02-24 09:53] VITALS: BP 136/70; PULSE 80; RESP 14; TEMP 36.2; O2SAT 100
--- NOTE | 2025-02-24 10:26 | OP_ITS ---
DATE OF SERVICE: 02/24/2025 SURGEON: Luis Noriega MD INDICATIONS: The patient presents for evaluation of colorectal cancer screening. Full consent has been obtained from her for this, including risks of bleeding and perforation. PREOPERATIVE DIAGNOSIS: POSTOPERATIVE DIAGNOSIS: PROCEDURE PERFORMED: Colonoscopy to the cecum and terminal ileum with biopsy and removal of polyp. ESTIMATED BLOOD LOSS: COMPLICATIONS: ANESTHESIA: Medication used, monitored anesthesia care. ASSISTANTS: SPECIMENS: PREOPERATIVE DIAGNOSES: Colorectal cancer screening and family history of colon cancer. POSTOPERATIVE DIAGNOSES: Colorectal cancer screening and family history of colon cancer, small colon polyp, diverticulosis, and internal hemorrhoids. DESCRIPTION OF PROCEDURE: The patient was placed in the left lateral decubitus position. The digital rectal exam revealed no abnormalities. The Olympus video pediatric colonoscope was entered into the rectum and advanced easily to the cecum. Once in the cecum, I did identify cecal pouch with appendiceal orifice and a normal-appearing ileocecal valve. The terminal ileum was cannulated and appeared normal. The scope was withdrawn back in the colon. In the cecum was a 3 mm polyp, which was biopsied and completely removed with a cold biopsy forceps. The remainder of the cecum appeared normal. The scope was slowly withdrawn assessing all mucosal surfaces carefully. Preparation was excellent. There was transillumination of light deep in the right lower quadrant. I did not visualize any other polyps, colitis, nor angiodysplasia. There was a mild amount of sigmoid diverticulosis. In the rectum, scope was retroflexed visualizing internal hemorrhoids, but no other pathology. The rectal mucosa appeared normal. The scope was straightened and withdrawn from the patient. She tolerated the procedure well and was returned to the recovery area in stable condition. IMPRESSION: 1. Small colon polyp. 2. Diverticulosis. 3. Internal hemorrhoids. PLAN: The results of the biopsy will be checked. I would recommend a repeat colonoscopy in 5 years for further screening. She will otherwise see me on a p.r.n. basis. This has been discussed with the daughter. MD OXANA Palma/LESLEY / [phone]
== END 2025-02-24 10:16 | disposition home or self-care (01) ==
PROVIDERS: PCP Internal Medicine; Visit Provider Internal Medicine
PROC: 0DJD8ZZ Inspection of Lower Intestinal Tract, Via Natural or Artificial Opening Endoscopic (ICD-10-PCS; CPT 45378; principal; 2025-02-24 08:30)
DX: Z12.11 Encounter for screening for malignant neoplasm of colon (principal); Z80.0 Family history of malignant neoplasm of digestive organs; D12.0 Benign neoplasm of cecum; K57.30 Diverticulosis of large intestine without perforation or abscess without bleeding; K64.8 Other hemorrhoids; E03.9 Hypothyroidism, unspecified; N39.498 Other specified urinary incontinence; Z79.899 Other long term (current) drug therapy; Z88.0 Allergy status to penicillin; Z98.890 Other specified postprocedural states
CPT/HCPCS: 45380; 88305; J2003; J2405; J2704

== ENCOUNTER 2025-07-05 07:48 | Outpatient (REF) | payer OTHER, SELFPAY ==
--- OUTSIDE RECORDS SUMMARY | 2025-07-05 07:51 | XMS_ITS | Patient Health Record ---
Author Organization [facility] Address [address] [place] [address] Care Team Providers Care Dry Wall Finisher Name Role Phone Bruce Rawls MD Primary Care Provider Luis Mills [phone] Allergies Allergen (clinical drug ingredient) Drug/Non Drug Allergy documented on EMR Reaction Allergy Type Onset Date Status penicillin G Penicillin G Sodium Unknown Drug Allergy Active Results Component Value Reference Range Notes Pathology (Not yet reviewed by provider) Interpretation: Performing Lab:[facility], [address] [place] [id number] Notes/Report: Reason For Referral No Information Medications Medication [...] Problem Status W/U Status Risk Notes Problem [id number] Encounter for screening for malignant neoplasm of colon (Z12.11) Active confirmed Problem [id number] Preprocedural examination (Z01.818) Active confirmed Problem 849602343 Family history o f colon cancer in father (Z80.0) Active confirmed Vital Signs Blood pressure diastolic 00 mm Hg 11/15/2024 Height 60 in 11/15/2024 Blood pressure systolic 00 mm Hg 11/15/2024 Weight 140 lbs 11/15/2024 BMI 27.34 kg/m2 11/15/2024 Encounters Encounter Location Date Provider Diagnosis [facility] [address] [place], [place] [id number] 02/24/2025 Luis Noriega Colon cancer screeni ng Z12.11 ; Family history of colon cancer Z80.0 ; Colon polyps K63.5 and Diverticulosis of large intestine without perforation or abscess without bleeding K57.30 [facility] [address] [place] [address] 11/15/2024 Luis Noriega Encounter for screen ing for malignant neoplasm of colon Z12.11 ; Preprocedural examination Z01.818 and Family history of colon cancer in father Z80.0 Assessments Encounter Date Diagnosis (ICD Code) Assessment Notes Treatment Notes Treatment Clinical Notes Section Notes 02/24/2025 Colon cancer screening (ICD-10 - Z12.11) 02/24/2025 Family history of colon cancer (ICD-10 - Z80.0) 11/15/2024 Encounter for screening for malignant neoplasm [...] to keep you advised of her progress. 02/24/2025 Colon polyps (ICD-10 - K63.5) 11/15/2024 Family history of colon cancer in [...] to keep you advised of her progress. 02/24/2025 Diverticulosis of large intestine without perforation or abscess without bleeding (ICD-10 - K57.30) Plan Of Treatment Pending Test Test Name Order Date Pathology 02/24/2025 Future Test Test Name Order Date COLONOSCOPY 01/20/2019 COLONOSCOPY 11/15/2024 Insurance Providers Payer Name Payer Address Payer Phone Subscriber Number Group Number Insured Name Patient Relationship to Insured Coverage Start Date Coverage End Date [facility] [address] [address] [place], [place] [id number] KSENIA CONTRERAS Self - patient is the insured Medical (General) History Medical History History ICD Code Denies [place],DM,CVA,Lung disease,renal dise ase Urinary incontinence-mild Hypothyroidism Neg. colonoscopy in 01/2010 Negative screening colonoscopy in February of 2019 Surgical History Surgery Date(Month/Year) Nasal and ear surgeries BTL Tongue surgery due to fall as child and bit tongue
[2025-07-05 09:11] LABS: Free T4 (Free Thyroxine) 1.19 ng/dL (0.71-1.85); Thyroid Stimulating Hormone 6.78 uIU/mL (0.32-4.0)
== END 2025-07-05 07:49 | disposition home or self-care (01) ==
LOC: HO.LAB 07:48
PROVIDERS: PCP Internal Medicine; Visit Provider Internal Medicine
DX: E11.65 Type 2 diabetes mellitus with hyperglycemia (principal); E03.9 Hypothyroidism, unspecified
CPT/HCPCS: 36415; 82570; 84439; 84443

== ENCOUNTER 2025-07-11 11:43 | Outpatient (AMB) | payer OTHER, SELFPAY ==
--- NOTE | 2025-07-11 11:51 | A.OFFPC_ITS ---
Vital Signs 07/11/25 11:52 Height 5 ft Weight 142 lb 2 oz BMI 27.8 BP 110/70 Blood Pressure Location Lt brachial Position Sitting Pulse 77 Pulse Source Pulse Oximeter Temp 97.3 F Temp Source Temporal Artery Scan Pulse Oximetry (%) 94 Oxygen Delivery Method Room Air Intake Visit Reasons: Follow Up Intake Note: Patient is here to follow up on DM, Hypothyroid, Hypercholesterolemia. Rubber Goods Finisher Required: No Deputy Sheriff Lieutenant: Not Required per policy Accompanied by: Self / Same As Patient Allergies Penicillins (PENICILLINS) Allergy (Unknown, Verified 07/11/25 11:52) RASH Medication List - Last Reconciled 07/11/25 by Bruce Rawls MD cholecalciferol (vitamin D3) 25 mcg PO DAILY levothyroxine Take 1 tablet every day except for Thursday take 2 tablets orally ; 90 days multivitamin 1 tab PO DAILY omega-3 fatty acids (Fish Oil Concentrate) 1,000 mg PO DAILY rosuvastatin 40 mg PO DAILY Tobacco use date assessed: 07/11/25 Dental Screening Dental Screen Date: 02/20/25 [facility] Medical History Learning disability Concussion Hearing loss Pelvic fracture Hypercholesterolemia Stress incontinence Overweight (BMI 25.0-29.9) Vitamin D deficiency Hypothyroid Surgical History History of surgery History of colonoscopy History of ear surgery History of nasal surgery History of tubal ligation Family History Father Colon cancer Myocardial infarction Mother Diabetes Maternal Grandfather Myocardial infarction Paternal Grandmother Mouth cancer Gastric cancer Paternal Uncle Colon cancer Spinal cord cancer Sister Uterine cancer Social History Household Members Other:: . 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 1. Little interest or pleasure in doing things: not at all 2. Feeling down, depressed, or hopeless: not at all 3. Trouble falling or staying asleep, or sleeping too much: not at all 4. Feeling tired or having little energy: not at all 5. Poor appetite or overeating: not at all 6. Feeling bad about yourself - or that you are a failure or have let yourself or your family down: not at all 7. Trouble concentrating on things, such as reading the newspaper or watching television: not at all 8. Moving or speaking so slowly that other people could have noticed. Or the opposite - being so fidgety or restless that you have been moving around a lot more than usual: not at all 9. Thoughts that you would be better off or of hurting yourself in some way: not at all Total score: 0 Source: Developed by Drs. Luis Gray, Lisa Valdes, Niraj Martin and colleagues, with an educational smita from [employer]. Thrive Questionnaire Date Thrive assessed: 02/20/25 I am a: Patient What is your living situation today?: I have a steady place to live Within the past 12 months, did the food you bought not last and you didn't have the money to get more?: Never true Within the past 12 months, did you worry whether your food would run out before you got money to buy more?: Never true Do you have trouble paying for medicines?: No Do you have trouble getting transportation to medical appointments?: No Do you have trouble paying your heating and electricity bill?: No Do you have trouble taking care of your child, family member or friend?: No Do you have trouble with day-to-day activities such as bathing, preparing meals, shopping, managing finances, etc.?: No Are you currently unemployed and looking for a job?: No Are you interested in more education?: No Please select the resources that you would like help with: None Currently or been in a relationship where the following occur: No concerns reported THRIVE Score: 0 AUDIT C Alcohol Use Questionnaire (AUDIT-C) 1. How often do you have a drink containing alcohol?: 2-4 times a month 2. How many drinks containing alcohol do you have on a typical day when you are drinking?: 1 or 2 3. How often do you have six or more drinks on one occasion?: Never Total Score: 2 ISAAC-7 AMB Questionnaire ISAAC-7 Date ISAAC - 7 assessed: 07/11/25 Feeling nervous, anxious, or on edge: 0 = Not at all Not being able to stop or control worryin = Several days Worrying too much about different things: 0 = Not at all Trouble relaxin = Not at all Being so restless that it is hard to sit still: 0 = Not at all Becoming easily annoyed or irritable: 0 = Not at all Feeling afraid as if something awful might happen: 0 = Not at all Total ISAAC-7 score (0-4 normal; 5-9 mild; 10-14 moderate; 15-21 severe): 1 Source: Developed by Drs. Luis Gray, Lisa Valdes, Niraj Martin and colleagues, with an educational smita from [employer]. Physical exam (Primary Care) Vital Signs: Last Vital Signs Temp 97.3 F 07/11/25 11:52 Pulse 77 07/11/25 11:52 BP 110/70 07/11/25 11:52 Pulse Ox 94 07/11/25 11:52 Oxygen Delivery Method Room Air 07/11/25 11:52 BMI result Body Mass Index 27.8 Tobacco/Smoking Status: Tobacco use Status Tobacco use date assessed 07/11/25 07/11/25 11:57 Patient Tobacco Use Status Never used Tobacco 07/11/25 11:57 e-Cigarette/Vaping Use Never Used 07/11/25 11:57 PHQ-9: PHQ-9 Score PHQ-9: Total score 0 07/11/25 11:57 Thrive Assessment: Date of Thrive Assessment Date Thrive assessed 02/20/25 07/11/25 11:57 Currently or been in a relationship where the following occur: No concerns reported Const General: alert; No acute distress Eyes Conjunctivae: conjunctivae normal Resp Auscultation: clear to auscultation bilaterally Cardio Rate: regular rate Rhythm: regular rhythm GI Inspection: Yes normal to inspection Extrem General: Yes normal to inspection and No edema Results AMB Hemoglobin A1c AMB Hemoglobin A1c 6.3 % Last Edit by KATHY Chacon on 07/11/25 12:04 Results Reviewed Results Reviewed: Laboratory Last Values Hgb A1c (Clinic) 6.3 % (4.0-6.0) H 07/11/25 11:51 Coding Level of Care Code Est Pt Level 4 (27770) Complex EM visit Add On G2211 Diagnoses Type 2 diabetes mellitus with hyperglycemia, without long-term current use of insulin E11.65 Diabetes mellitus custodial insulin use: without termite control representative use Acquired hypothyroidism E03.9 Hypothyroidism type: acquired Hypercholesterolemia E78.00 Assessment & Plan Assessment & Plan (1) Type 2 diabetes mellitus with hyperglycemia: Code(s): E11.65 - Type 2 diabetes mellitus with hyperglycemia Category: Medical Qualifiers: Diabetes mellitus termite control representative insulin use: without termite control representative use Qualified Code(s): E11.65 - Type 2 diabetes mellitus with hyperglycemia Plan: Decrease the amount of carbohydrate intake, pasta, bread, rice and potatoes are all sugar and that is aside from all the sweet stuff, remember that fruits are good but they are Sweet also. Hemoglobin A1c goal of less than 6.5. Patient is diet controlled (2) Hypothyroid: Code(s): E03.9 - Hypothyroidism, unspecified Category: Medical Qualifiers: Hypothyroidism type: acquired Qualified Code(s): E03.9 - Hypothyroidism, unspecified Plan: With the TSH elevated. Patient was advised to adjust the medication. (3) Hypercholesterolemia: Code(s): E78.00 - Pure hypercholesterolemia, unspecified Category: Medical Plan: Avoid fried foods, chicken skin, eggs, butter margarine, pastries and meat. Be it pork or beef they have a lot of cholesterol on rosuvastatin LDL goal of less than 100 and triglyceride of less than 150 Plan History of Present Illness The patient is a 54-year-old female presenting for a follow-up visit. She has a history of hypothyroidism, hypercholesterolemia, and diabetes mellitus. Her last colonoscopy in January 2025 revealed a tubular adenoma, which is a benign polyp, and she is advised to have a follow-up in five years. In January 2025, her blood work showed normal blood count and electrolytes, with a blood sugar level of 164 mg/dL and a hemoglobin A1c of 6.0%. Her liver function tests were normal, and her LDL cholesterol was 88 mg/dL, which is within the desired range. However, she has a low vitamin D level of 24 ng/mL and a slightly elevated thyroid-stimulating hormone (TSH) level of 6.78 mIU/L. The patient has adjusted her thyroid medication dosage and plans to retest her thyroid function in mid. She has not had a mammogram since 2022 and is due for one. Health Maintenance - Mammogram: Due for screening, last done in 2022 - Colonoscopy: Follow-up recommended in five years due to tubular adenoma Social History - Family: Busy with family responsibilities, including caring for her mother and managing household tasks - Nutrition: Engages in home gardening and cooking, including making jams and tegan spaghetti sauce Review of Systems - Endocrine: Denies neck pain or swelling Physical Exam - Neck: No pain or swelling noted Results - Labs: Blood sugar 164 mg/dL, Hemoglobin A1c 6.0%, LDL cholesterol 88 mg/dL, Vitamin D 24 ng/mL, TSH 6.78 mIU/L Plan The patient will continue with her current thyroid medication regimen, with a plan to retest thyroid function in mid to ensure appropriate dosing. A mammogram is due and will be scheduled to ensure timely breast cancer screening. The patient is advised to follow up with a colonoscopy in five years due to the presence of a tubular adenoma found in the last screening. Her vitamin D def iciency will be managed with supplementation, and her cholesterol levels will continue to be monitored, given the current satisfactory LDL level. Patient was informed and verbally consented to the use of an ambient scribe for clinic note documentation during this visit. Discussion Notes I discussed with the patient the importance of maintaining her current thyroid medication regimen and the plan to retest her thyroid function in mid to ensure the dosage is correct. We also talked about the need for a mammogram, which is overdue, and I will arrange for this screening to be done. Add itionally, I emphasized the necessity of a follow-up colonoscopy in five years due to the previous finding of a tubular adenoma. We reviewed her vitamin D deficiency and the plan for supplementation, as well as the satisfactory status of her cholesterol levels, which will continue to be monitored. Patient Instructions - Continue current thyroid medication and retest thyroid function in mid-Augob er. - Schedule and complete a mammogram as soon as possible. - Plan for a follow-up colonoscopy in five years. - Take vitamin D supplements as directed. Orders: Orders AMB Hemoglobin A1c Today E11.65 - Type 2 diabetes mellitus with hyperglycemia MM tomosynthesis screening BI Today Z12.31 - Encounter for screening mammogram for malignant neoplasm of breast Medications: Refilled rosuvastatin 40 mg PO DAILY 90 tabs 1RF E78.00 - Pure hypercholesterolemia, unspecified
[2025-07-11 11:52] VITALS: BP 110/70; PULSE 77; TEMP 36.3; O2SAT 94; BMI 27.8
--- OUTSIDE RECORDS SUMMARY | 2025-07-11 12:44 | XMS_ITS | Patient Health Record ---
Author Organization [facility] Address [address] [place] [address] Care Team Providers Care Analytics Specialist Name Role Phone Bruce Rawls MD Primary Care Provider Luis Mills [phone] Allergies Allergen (clinical drug ingredient) Drug/Non Drug Allergy documented on EMR Reaction Allergy Type Onset Date Status penicillin G Penicillin G Sodium Unknown Drug Allergy Active Results Component Value Reference Range Notes Pathology (Not yet reviewed by provider) Interpretation: Performing Lab:[facility], [address] [place] [id number] Notes/Report: Reason For Referral No Information Medications [...] Problem Status W/U Status Risk Notes Problem [id number] Encounter for screening for malignant neoplasm of colon (Z12.11) Active confirmed Problem [id number] Preprocedural examination (Z01.818) Active confirmed Problem 114544956 Family history o f colon cancer in father (Z80.0) Active confirmed Vital Signs Blood pressure diastolic 00 mm Hg 11/15/2024 Height 60 in 11/15/2024 Blood pressure systolic 00 mm Hg 11/15/2024 Weight 140 lbs 11/15/2024 BMI 27.34 kg/m2 11/15/2024 Encounters Encounter Location Date Provider Diagnosis [facility] [place] [facility] [address] [place], [place] [id number] 02/24/2025 Luis Noriega Colon cancer screeni ng Z12.11 ; Family history of colon cancer Z80.0 ; Colon polyps K63.5 and Diverticulosis of large intestine without perforation or abscess without bleeding K57.30 [facility] [address] [place] [address] 11/15/2024 Luis Noriega Encounter for screen ing [...] Insured Coverage Start Date Coverage End Date [facility] [address] [address] [place], [place] [id number] KSENIA CONTRERAS Self - patient is the insured Medical (General) History Medical History History ICD Code Denies [place],DM,CVA,Lung disease,renal dise ase Urinary incontinence-mild Hypothyroidism Neg. colonoscopy in 01/2010 Negative screening colonoscopy in February of 2019 Surgical History Surgery Date(Month/Year) Nasal and ear surgeries BTL Tongue surgery due to fall as child and bit tongue
== END 2025-07-11 12:29 | disposition home or self-care (01) ==
LOC: HO.HMCH 11:44
PROVIDERS: PCP Internal Medicine; Visit Provider Internal Medicine
DX: E11.65 Type 2 diabetes mellitus with hyperglycemia (principal); E03.9 Hypothyroidism, unspecified; E78.00 Pure hypercholesterolemia, unspecified

== ENCOUNTER → 2025-07-11 11:43 | Outpatient (BNVA) | payer OTHER, SELFPAY | PROVIDERS: PCP Internal Medicine; Visit Provider Internal Medicine | DX: E11.65 Type 2 diabetes mellitus with hyperglycemia (principal); E03.9 Hypothyroidism, unspecified; E78.00 Pure hypercholesterolemia, unspecified | CPT/HCPCS: 83036; 99212 ==

== ENCOUNTER 2025-07-18 14:43 | Outpatient (REF) | payer OTHER, SELFPAY ==
--- NOTE | ~2025-07-18 | MM_ITS ---
EXAMINATION: MM SCREENING DIGITAL BREAST TOMOSYNTHESIS, BILATERAL CLINICAL INFORMATION: Screening. Asymptomatic. COMPARISON: Mammography: Comparison is made with available priors TECHNIQUE: Digital breast mammography with tomosynthesis is performed in both the craniocaudal and mediolateral oblique views along with computer-aided detection (CAD). FINDINGS: There are scattered areas of fibroglandular density (ACR BI-RADS breast composition Category b). There are no significant masses, abnormal calcifications, or other abnormalities. MM/MM tomosynthesis screening BI IMPRESSION: No mammographic evidence of malignancy. ASSESSMENT: BI-RADS BI-RADS 1 - Negative RECOMMENDATION: Routine annual mammography screening. 1 year F/U This examination should not preclude the clinical evaluation of a suspicious palpable abnormality. This patient's information was entered into a reminder system with a target due date for their next mammogram. Electronically signed by: Thelma Padilla DO 07/20/2025 08:33 AM EDT
--- OUTSIDE RECORDS SUMMARY | 2025-07-18 16:04 | XMS_ITS | Patient Health Record ---
Author Organization [facility] Address [address] [place] [address] Care Team Providers Care Game Farm Supervisor Name Role Phone Bruce Rawls MD Primary Care Provider Luis Mills [phone] Allergies Allergen (clinical drug ingredient) Drug/Non Drug Allergy documented on EMR Reaction Allergy Type Onset Date Status penicillin G Penicillin G Sodium Unknown Drug Allergy Active Results Component Value Reference Range Notes Pathology (Not yet reviewed by provider) Interpretation: Performing Lab:[facility], [address] [place] [phone] Notes/Report: Reason For Referral No Information Medications [...] Problem Status W/U Status Risk Notes Problem [id number] Encounter for screening for malignant neoplasm of colon (Z12.11) Active confirmed Problem [id number] Preprocedural examination (Z01.818) Active confirmed Problem 430655488 Family history o f colon cancer in father (Z80.0) Active confirmed Vital Signs Blood pressure diastolic 00 mm Hg 11/15/2024 Height 60 in 11/15/2024 Blood pressure systolic 00 mm Hg 11/15/2024 Weight 140 lbs 11/15/2024 BMI 27.34 kg/m2 11/15/2024 Encounters Encounter Location Date Provider Diagnosis [facility] [place] [facility] [address] [place], [place] [phone] 02/24/2025 Luis Noriega Colon cancer screeni ng Z12.11 ; Family history of colon cancer Z80.0 ; Colon polyps K63.5 and Diverticulosis of large intestine without perforation or abscess without bleeding K57.30 [facility] [address] [place] [address] 11/15/2024 Luis Noriega Encounter for screen ing [...] Insured Coverage Start Date Coverage End Date [facility] [address] [address] [place], [place] [id number] KSENIA CONTRERAS Self - patient is the insured Medical (General) History Medical History History ICD Code Denies [place],DM,CVA,Lung disease,renal dise ase Urinary incontinence-mild Hypothyroidism Neg. colonoscopy in 01/2010 Negative screening colonoscopy in February of 2019 Surgical History Surgery Date(Month/Year) Nasal and ear surgeries BTL Tongue surgery due to fall as child and bit tongue
== END 2025-07-18 14:44 | disposition home or self-care (01) ==
LOC: HO.MAMMO 14:43
PROVIDERS: PCP Internal Medicine; Visit Provider Internal Medicine
DX: Z12.31 Encounter for screening mammogram for malignant neoplasm of breast (principal)
CPT/HCPCS: 77063; 77067

== ENCOUNTER → 2025-07-18 14:45 | Outpatient (BNV) | payer OTHER, SELFPAY | PROVIDERS: PCP Internal Medicine; Visit Provider Internal Medicine | DX: Z12.31 Encounter for screening mammogram for malignant neoplasm of breast (principal) | CPT/HCPCS: 77063; 77067 ==